=== PATIENT | female | born 1975 | race Caucasian/White ===

== ENCOUNTER 2021-08-08 01:06 | Emergency (ER) | payer SELFPAY ==
[2021-08-08 01:07] VITALS: BP 111/92; PULSE 96; RESP 15; TEMP 36.2; O2SAT 100; BMI 21.8
[2021-08-08] MEDS: 0.9% Normal Saline 1,000 ML 1000 ML IV (01:32)
[2021-08-08 01:36] VITALS: BP 85/73; PULSE 79; RESP 16; O2SAT 97
[2021-08-08 01:41] LABS: Absolute Lymphocyte Count 1.79 X10^3/uL (0.83-4.51); Absolute Neutrophil Count 2.5 X10^3/uL (2.0-7.7); Basophil# 0.01 X10^3/uL; Basophil% 0.2 % (0-1); Hematocrit 34.6 % (37-47); Hemoglobin 11.6 g/dL (12.0-15.0); Lymphocyte # 1.79 X10^3/ul (0.83-4.51); Lymphocyte % 38.2 % (19-41); Mean Corp Hgb Conc 33.5 g/dL (32-36); Mean Corpuscular Hgb 30.7 pg (27.0-32.0); Mean Corpuscular Volume 91.5 fL (81-99); Mean Platelet Vol. 12.7 fl (6.2-12.0); Monocyte% 8.5 % (0-10); NRBC Flagged by Analyzer 0 % (0-5); Neutrophil # 2.47 X10^3/uL (2.7-7.7); Neutrophil % 52.7 % (47-70); Platelet Count 158 K/mm3 (150-450); RBC Distribution Width CV 12.1 % (11.6-14.6); RBC Distribution Width SD 40.5 fl (35.1-43.9); Red Blood Count 3.78 M/mm3 (4.2-5.4); White Blood Count 4.7 K/mm3 (4.4-11.0)
[2021-08-08] MEDS: 0.9% Normal Saline 1,000 ML 999 ML IV (01:42)
[2021-08-08 02:00] LABS: Anion Gap 9 (5-15); BUN 20 mg/dL (7-18); BUN/Creat Ratio 26.2 RATIO (10-20); Calcium,Total 9.4 mg/dL (8.5-10.1); Chloride 108 mmol/L (98-107); Creatinine, Serum 0.76 mg/dL (0.55-1.02); EST Glomerular Filtration Rate 88 mL/min (>60); Est Glom Filt Rate - Afr Amer 106 mL/min (>60); Estimated Creatinine Clearance 85.89 ml/min; Glucose 110 mg/dL (74-106); Potassium 3.2 mmol/L (3.5-5.1); Sodium Level 143 mmol/L (136-145)
[2021-08-08 02:21] LABS: Internal QC Validated? YES +Cl - CLEAR BKGD; Pregnancy, Serum, hCG Quali. NEGATIVE Negative
[2021-08-08 02:31] VITALS: BP 102/58; PULSE 74; RESP 18; O2SAT 99
--- NOTE | 2021-08-08 02:41 | ED.RN ---
CALLED PHYSICIANS 0220 ETA 60 MIN, CALLED 0225 SAID 45 MIN SQUAD EN ROUTE. CALLED TAMI QUIROS/CALLI, OLAMIDE, AND EVERT STEPHENS ALL WITH GREATER THAN [address] CASON STAYED WITH PHYSICIAN'S.
[2021-08-08 02:51] LABS: International Normalized Ratio 1.4; Prothrombin Time (Protime)PT. 16.8 SECONDS (11.7-14.9)
[2021-08-08 02:52] LABS: Lactic Acid 2.7 mmol/L (0.4-1.9)
[2021-08-08 02:52] LABS: Partial Thromboplast Time 29.3 Seconds (24.1-36.2)
--- NOTE | 2021-08-08 02:53 | ED.RN ---
PT ORDERED TO RCVE 2 UNITS OF PRBC'S. PT REFUSED TO RCVE THE TRANSFUSION. DR CASON AWARE
[2021-08-08 03:06] VITALS: BP 97/58; PULSE 71; RESP 15; O2SAT 99
--- NOTE | 2021-08-08 03:29 | ED.VIS.FEGU ---
HPI HPI - Female History of Present Illness Chief Complaint: Vag Bleeding Informant: patient Narrative Narrative: Patient presents with vaginal bleeding after intercourse. This patient was having intercourse and felt a tear sensation. She then had a fair amount of vaginal bleeding. This was bleeding with clots that kept going on so she came in. She does not really have any significant pain. She states she had a tearing sensation but it was not terribly painful. Patient has a history of cervical cancer treated 10 years ago. She had had laparoscopy with lymph node dissection but she did not have hysterectomy. They did do radiation and chemotherapy. She states her uterus is very small and scarred down. She has vaginal scarring. She states normally she can place her finger in her vagina and it is rather shallow. Now when she does that she can feel the end and that is a big difference. She is not really having pain up into her abdomen though. When the patient got here she did get lightheaded diaphoretic and dropped her pressure to the 60s and 80s. Her heart rate also went down to about 47 so some of this may have been a vagal response but she is not having pain that would be causing this so it might be due to blood loss. She is not on any anticoagulation. She is not on any routine meds. Allergy to sulfa only. [facility] Medical History Cervical cancer Home Medications NK 08/08/21 [History Last Taken Unknown] Allergy/AdvReac Type Severity Reaction Status Date / Time Sulfa (Sulfonamide Allergy Rash Verified 08/08/21 01:13 Antibiotics) Social History Smoking Status: Never smoker ROS ROS ED Constitutional Constitutional ED: Denies fever(s) ENT ENT ED: Denies rhinorrhea Cardiovascular Cardiovascular: Denies chest pain or palpitations Respiratory/Chest Respiratory/Chest: Denies cough or dyspnea Gastrointestinal Gastrointestinal: Reports other Details: Mild vaginal discomfort but no abdominal pain. Overall her pain is actually very low. ; Denies abdominal pain, nausea or vomiting Genitourinary Genitourinary ED: Reports other Details: See history of present illness Musculoskeletal Musculoskeletal: Denies myalgias Integumentary Denies rash Neurologic Neurologic: Denies paresthesias Endocrine Endocrinology: Denies polydipsia or polyuria Hematologic/Lymphatic Hematologic/Lymphatic: Denies easy bleeding or easy bruising Allergic/Immunologic Allergic/Immunologic ED: Denies urticaria EXAM Physical Exam Const Vital Signs: 08/08/21 01:07 08/08/21 01:36 08/08/21 02:31 Temperature 97.1 F L Temperature Source Oral Pulse Rate 96 79 74 Respiratory Rate 15 16 18 Blood Pressure 111/92 H 85/73 L 102/58 L Blood Pressure Mean 98 77 72 Pulse Ox 100 97 99 Oxygen Delivery Method Room Air Room Air 08/08/21 03:06 08/08/21 03:45 Temperature 97.9 F Temperature Source Pulse Rate 71 71 Respiratory Rate 15 16 Blood Pressure 97/58 L 97/58 L Blood Pressure Mean 71 71 Pulse Ox 99 99 Oxygen Delivery Method Room Air Positive well nourished and well developed Constitutional Narrative: Patient looks a little bit pale when I first see her but that is when her blood pressure drops. She has mild diaphoresis. General Appearance ED: well developed; Negative for pallor HEENT Reports moist mucous membranes Eyes General Eye ED: Negative for pale conjunctiva Neck supple Chest Wall inspection of chest normal Resp normal respiratory effort Cardio regular rate and regular rhythm GI normal to inspection, nondistended, normoactive bowel sounds, soft to palpation and non-tender GI Narrative: Her abdomen is flat and not tender. no CVA tenderness Narrative: Pelvic exam shows normal external genitalia. There is bright red blood in the vaginal vault. This is not welling up arising but does look to be quite fresh. I was able to remove multiple clots but cannot see a defined tear. Bimanual exam did not show tenderness up higher in the abdomen. There is a slight irregularity of the left vaginal wall but I do not feel perforation. I also do not feel a normal cervix. But she has had radiation at that area. Back/Spine no CVA tenderness Extremity General Extremety ED: Negative for edema or tenderness General Extremity: Negative for edema Neuro oriented x3 Sensorium / Orientation: alert Psych mental status grossly normal Skin Skin Narrative: Transient diaphoresis. General Skin Exam: Negative for pallor MDM MDM MDM Narrative Medical decision making narrative: With her history and exam I talked our [employer] physician, Dr. Alma Oviedo. She felt with this patient's complex history and radiation that doing surgery here would not be the best for her. I then made calls to [facility] and [facility]. [facility] is able to get back and accept her. I discussed case with Dr. Herron in the emergency department and the transfer line had discussed the case with [employer] physician. I talked to the patient about transfusion. She does not want this at this time. However I will do type and crossing in case we have further issues. Happily, after fluids patient stabilized and has remained very stable here. Her heart rate is about 70. She has had blood pressures at about 100-113. Patient was transferred. She is still doing well. Bleeding does seem to have calm down significantly. Vitals have been good. Heart rates about 70. No more hypotensive episodes. Lab Data Labs: Laboratory Results - last 24 hr 08/08/21 08/08/21 08/08/21 01:20 01:20 01:20 WBC 4.7 RBC 3.78 L Hgb 11.6 L Hct 34.6 L MCV 91.5 MCH 30.7 MCHC 33.5 RDW Std Deviation 40.5 RDW Coeff of Patrick 12.1 Plt Count 158 MPV 12.7 H Immature Gran % (Auto) 0.400 Neut % (Auto) 52.7 Lymph % (Auto) 38.2 [place] % (Auto) 8.5 Eos % (Auto) 0.0 Baso % (Auto) 0.2 Absolute Neuts (auto) 2.5 Absolute Lymphs (auto) 1.79 Nucleated RBC % 0 PT INR APTT Sodium 143 Potassium 3.2 L Chloride 108 H Carbon Dioxide 26.0 Anion Gap 9 BUN 20 H Creatinine 0.76 Estim Creat Clear Calc 85.89 Est GFR (MDRD) Af Amer 106 Est GFR (MDRD) Non-Af 88 BUN/Creatinine Ratio 26.2 H Glucose 110 H Lactic Acid Calcium 9.4 Serum , Qual NEGATIVE Blood Type Antibody Screen Crossmatch 08/08/21 08/08/21 08/08/21 01:20 01:20 02:05 WBC RBC Hgb Hct MCV MCH MCHC RDW Std Deviation RDW Coeff of Patrick Plt Count MPV Immature Gran % (Auto) Neut % (Auto) Lymph % (Auto) [place] % (Auto) Eos % (Auto) Baso % (Auto) Absolute Neuts (auto) Absolute Lymphs (auto) Nucleated RBC % PT INR APTT Sodium Potassium Chloride Carbon Dioxide Anion Gap BUN Creatinine Estim Creat Clear Calc Est GFR (MDRD) Af Amer Est GFR (MDRD) Non-Af BUN/Creatinine Ratio Glucose Lactic Acid 2.7 H* Calcium Serum , Qual Blood Type A POSITIVE Antibody Screen NEGATIVE Crossmatch See Detail 08/08/21 02:18 WBC RBC Hgb Hct MCV MCH MCHC RDW Std Deviation RDW Coeff of Patrick Plt Count MPV Immature Gran % (Auto) Neut % (Auto) Lymph % (Auto) [place] % (Auto) Eos % (Auto) Baso % (Auto) Absolute Neuts (auto) Absolute Lymphs (auto) Nucleated RBC % PT 16.8 H INR 1.4 APTT 29.3 Sodium Potassium Chloride Carbon Dioxide Anion Gap BUN Creatinine Estim Creat Clear Calc Est GFR (MDRD) Af Amer Est GFR (MDRD) Non-Af BUN/Creatinine Ratio Glucose Lactic Acid Calcium Serum , Qual Blood Type Antibody Screen Crossmatch Discharge Plan Triage Chief Complaint: Vag Bleeding ED Provider: Mark Tran Dx/Rx/DC Orders Clinical Impression: Vaginal trauma, Acute hypotension Prescriptions: No Action NK RF: 0 Primary Care Provider: Care Physician,No Primary Referrals: Care Physician,No Primary [Primary Care Provider] - Disposition Disposition: Acute Care Hospital Discharge Location: [facility] Discharge Date/Time: 08/08/21 03:46
[2021-08-08 03:45] VITALS: BP 97/58; PULSE 71; RESP 16; TEMP 36.6; O2SAT 99
[2021-08-08 06:10] LABS: Reflex Lactate? Y
== END 2021-08-08 03:46 | disposition short-term general hospital (02) ==
PROVIDERS: Emergency Provider Emergency Medicine; Visit Provider Emergency Medicine
DX: S39.93XA Unspecified injury of pelvis, initial encounter (principal); X58.XXXA Exposure to other specified factors, initial encounter; Z85.41 Personal history of malignant neoplasm of cervix uteri; Z92.3 Personal history of irradiation; I95.9 Hypotension, unspecified
CPT/HCPCS: 80048; 83605; 84703; 85025; 85610; 85730; 86850; 86900; 86901; 86920; 96360; 99285; J7030; A4216

== ENCOUNTER 2022-03-19 11:00 | Emergency (ER) | payer SELFPAY ==
[2022-03-19] VITALS (8 sets, daily range): BP systolic 92–124; BP diastolic 56–96; PULSE 95–131; RESP 16–22; TEMP 37.3–39.2; O2SAT 98–99; BMI 19.4
--- NOTE | 2022-03-19 11:35 | NURSING ---
NO OLD EKGS
--- NOTE | 2022-03-19 12:04 | RAD_ITS ---
We are attempting to reach an attending provider to discuss findings. An addendum with communication details will be sent when the communication is complete. STUDY: X-RAY CHEST REASON FOR EXAM: Female, 46 years old. Cough TECHNIQUE: Single AP portable view of the chest. COMPARISON: None. FINDINGS: There is a right-sided paramediastinal mass in the right apex measuring 5.4 x 4.6 cm. There is a right apical nodule measuring 1.2 cm. There is a slightly irregular appearance of the right fourth rib. There is no demonstrated pleural abnormality. Normal size heart. Normal mediastinum and renetta. Normal visualized pulmonary arteries. Normal visualized aortic arch and descending thoracic aorta. Normal visualized thoracic spine. Normal visualized ribs, clavicles, and shoulders. There is no demonstrated abnormality of the visualized soft tissue structures of the upper abdomen. RAD/Chest 1 View (Portable) IMPRESSION: 5.4 x 4.6 cm mass with adjacent 1.2 cm nodule in the right upper lobe bordering the mediastinum for which further evaluation is warranted with CT scan of the chest. Although inflammatory change could have this appearance neoplasm should be excluded. Electronically Signed: Cathie Rebolledo MD at 13:07 EST Reading Location ID and State: [facility] / [place] Tel , Service support ,
[2022-03-19 12:27] LABS: Mucous, Urine 0 SEEN /hpf (<or=2+)
[2022-03-19 12:28] LABS: Color, Urine Yellow (Yellow); Glucose, Dipstick Normal (Normal); Ketone-Dipstick 15 mg/dl (Negative); Leukocyte Esterase-Dipstick 500 /ul (Negative); Nitrite-Dipstick Positive (Negative); Occult Blood-Urine 250 /ul (Negative); Protein-Dipstick 100 mg/dl (Negative); Specific Gravity, Urine 1.015 (1.002-1.030); Urine Bilirubin Dipstick Negative (Negative); Urine Clarity Sl. Cloudy (Clear); Urine Urobilinogen Normal (Normal)
[2022-03-19 12:36] LABS: Bacteria 3+ /hpf (None Seen); Red Blood Cells-Urine 5-10 SEEN /hpf (0-5); Squamous Epithelial Cells - UA 0-5 SEEN /hpf (5-10); White Blood Cells 10-25 SEEN /hpf (0-5)
[2022-03-19 12:37] LABS: Internal QC Validated? YES +Cl - CLEAR BKGD; Pregnancy, Urine Negative Negative; Yeast-Urine 0 SEEN /hpf (None Seen)
--- NOTE | 2022-03-19 12:39 | EX.ED.DYSGE1 ---
HPI History of Present Illness Chief Complaint: General Illness Informant: patient Narrative Narrative: Presents feeling ill for 4 days. States fever headache lower abdominal cramping. No vomiting or diarrhea. Malodorous urine. Denies sick contacts. Nonvaccinated for COVID or influenza. History of cervical cancer with radiation in the past therefore does not have menstrual periods. States also has myalgias.She states never test positive for COVID in the past had symptoms when it first came out. [facility] Medical History Cervical cancer Home Medications cefdinir 300 mg capsule 300 mg PO BID #14 caps 03/19/22 [Rx Last Taken Unknown] Allergy/AdvReac Type Severity Reaction Status Date / Time Sulfa (Sulfonamide Allergy Rash Verified 03/19/22 11:01 Antibiotics) Social History Smoking Status: Never smoker ROS ROS ED Constitutional Constitutional ED: Reports fever(s); Denies chills or sweats Eyes Eyes: Denies change in vision ENT ENT ED: Denies dysphagia or sore throat Cardiovascular Cardiovascular: Denies chest pain, leg edema, palpitations or racing heartbeat Respiratory/Chest Respiratory/Chest: Reports cough; Denies dyspnea or dyspnea on exertion Gastrointestinal Gastrointestinal: Reports abdominal pain; Denies diarrhea, nausea or vomiting Genitourinary Genitourinary ED: Reports other Details: Malodorous urine. ; Denies dysuria, hematuria or urinary frequency Musculoskeletal Musculoskeletal: Reports myalgias; Denies back pain, extremity pain or neck pain Integumentary Denies rash or wounds Neurologic Neurologic: Denies headache(s), paresthesias or weakness EXAM Physical Exam Const Vital Signs: 03/19/22 11:01 03/19/22 12:30 03/19/22 11:04 Temperature 100.7 F H 100.7 F H Temperature Source Temporal Temporal Pulse Rate 131 H 131 H Respiratory Rate 16 16 Respiratory Effort Normal Non-Labored Respiratory Pattern Normal Blood Pressure 124/96 H 124/96 H Blood Pressure Mean 105 105 Pulse Ox 99 99 Oxygen Delivery Method Room Air Room Air 03/19/22 12:04 03/19/22 13:00 Temperature 100.5 F H 102.6 F H Temperature Source Temporal Oral Pulse Rate 130 H 106 H Respiratory Rate 18 22 H Respiratory Effort Respiratory Pattern Blood Pressure 118/85 H 99/66 Blood Pressure Mean 96 77 Pulse Ox 98 98 Oxygen Delivery Method Room Air Room Air Positive well nourished and well developed Constitutional Narrative: Clinically appears fatigued. Nontoxic. General Appearance ED: well developed HEENT Reports TM's clear HEENT Narrative: Mild dry mucosal membranes. Tympanic Membrane ED: Yes TM's clear Eyes PERRL, EOMs intact bilaterally and conjunctivae normal General Eye ED: Yes normal appearance of both eyes Neck no lymphadenopathy and supple General: Negative for tenderness Chest Wall Chest: Negative for tenderness Resp normal respiratory effort and normal air movement Effort and Inspection: symmetric chest movement; Negative for respiratory distress Cardio regular rhythm and no murmurs Rate: tachycardic Peripheral Pulses: pulses 2+ throughout GI normal to inspection, nondistended, normoactive bowel sounds and non-tender GI Narrative: Negative Trejo's or McBurney's tenderness. Palpation: Negative for guarding or rebound tenderness present Back/Spine no CVA tenderness and no thoracic nor lumbar tenderness Extremity normal to inspection General Extremety ED: Negative for edema or tenderness General Extremity: Negative for edema Neuro oriented x3, CN's II-XII intact bilaterally and no sensory deficits noted Sensorium / Orientation: awake and alert Skin no rashes or lesions noted and no wounds MDM MDM MDM Narrative Medical decision making narrative: Patient present influenza-like symptoms. She is tachycardic low-grade fever. Slight dry mucosal membranes. She given IV fluids. She had urine symptoms. Labs White count 17.3. Creatinine is normal. COVID and flu negative. Two-view chest x-ray reviewed by myself and the discussion with radiology concerning for right upper lung mass. Urine positive for infection. She was tachycardic febrile therefore lactic acid and blood cultures drawn. Lactic acid returned normal. CT chest with contrast obtained due to concerning mass, results noted 5.6 cm in diameter right apical mass. Also reported concerning for healing remote rib fractures 3 on the right 1 in the left. She denies trauma however states 2 months ago significant coughing at that time with pain that lasted a while. She had increasing fever in the ED of 102.6. History of Toradol and Tylenol. Heart rate improved with fluids. She is nontoxic. She states over a year ago when she moved in with her significant other lost 20 pounds that was intentional. No unintentional weight loss. History of cervical cancer 10 years ago with treatment. She stopped smoking at that time. She is not hypoxic or in respiratory distress. She started on Rocephin for her UTI findings with cultures pending. I discussed with telemarketing fundraiser Dr. Arevalo with her lung mass findings, she will call the office on Monday to be seen for outpatient work-up of the mass. Prescription for Omnicef sent to her pharmacy. Return precautions discussed. All questions were answered. Lab Data Attestation: I reviewed the patient's lab results. Labs: Laboratory Results - last 24 hr 03/19/22 03/19/22 03/19/22 12:20 12:20 12:40 WBC 17.3 H RBC 4.87 Hgb 14.3 Hct 43.4 MCV 89.1 MCH 29.4 MCHC 32.9 RDW Std Deviation 43.6 RDW Coeff of Patrick 13.2 Plt Count 147 L MPV 11.8 Immature Gran % (Auto) 0.800 Neut % (Auto) 78.3 H Lymph % (Auto) 3.2 L [place] % (Auto) 17.4 H Eos % (Auto) 0.0 Baso % (Auto) 0.3 Absolute Neuts (auto) 13.6 H Absolute Lymphs (auto) 0.56 L Nucleated RBC % 0 Diff Path Review May foll Platelet Estimate ADEQUATE RBC Morphology NORM C+C Sodium Potassium Chloride Carbon Dioxide Anion Gap BUN Creatinine Estim Creat Clear Calc Est GFR (MDRD) Af Amer Est GFR (MDRD) Non-Af BUN/Creatinine Ratio Glucose Lactic Acid Calcium Urine Color Yellow Urine Clarity Sl. Cloudy Urine pH 6.0 Ur Specific [place] 1.015 Urine Protein 100 H Urine Glucose (UA) Normal Urine Ketones 15 H Urine Occult Blood 250 H Urine Nitrite Positive H Urine Bilirubin Negative Urine Urobilinogen Normal Ur Leukocyte Esterase 500 H Urine RBC 5-10 SEEN Urine WBC 10-25 SEEN Ur Squamous Epith Cells 0-5 SEEN Urine Bacteria 3+ Urine Mucus 0 SEEN Urine Yeast 0 SEEN Urine Test Negative Chlam trachomat DNA PCR N.gonorrhoeae DNA (PCR) 03/19/22 03/19/22 03/19/22 12:40 12:55 14:45 WBC RBC Hgb Hct MCV MCH MCHC RDW Std Deviation RDW Coeff of Patrick Plt Count MPV Immature Gran % (Auto) Neut % (Auto) Lymph % (Auto) [place] % (Auto) Eos % (Auto) Baso % (Auto) Absolute Neuts (auto) Absolute Lymphs (auto) Nucleated RBC % Diff Path Review Platelet Estimate RBC Morphology Sodium 134 L Potassium 3.6 Chloride 99 Carbon Dioxide 27.0 Anion Gap 8 BUN 17 Creatinine 0.93 Estim Creat Clear Calc 64.67 Est GFR (MDRD) Af Amer 84 Est GFR (MDRD) Non-Af 69 BUN/Creatinine Ratio 18.2 Glucose 109 H Lactic Acid 0.9 Calcium 9.2 Urine Color Urine Clarity Urine pH Ur Specific [place] Urine Protein Urine Glucose (UA) Urine Ketones Urine Occult Blood Urine Nitrite Urine Bilirubin Urine Urobilinogen Ur Leukocyte Esterase Urine RBC Urine WBC Ur Squamous Epith Cells Urine Bacteria Urine Mucus Urine Yeast Urine Test Chlam trachomat DNA PCR Negative N.gonorrhoeae DNA (PCR) Negative Radiography Diagnostic Testing: Clinical Impression(s) from Imaging Studies Chest X-Ray 03/19/22 12:04 IMPRESSION: 5.4 x 4.6 cm mass with adjacent 1.2 cm nodule in the right upper lobe bordering the mediastinum for which further evaluation is warranted with CT scan of the chest. Although inflammatory change could have this appearance neoplasm should be excluded. Electronically Signed: Cathie Rebolledo MD at 13:07 EST , ADDENDUM: 03/19/22 1318 IMPRESSION: 5.4 x 4.6 cm mass with adjacent 1.2 cm nodule in the right upper lobe bordering the mediastinum for which further evaluation is warranted with CT scan of the chest. Although inflammatory change could have this appearance neoplasm should be excluded. N.B. : The above Results were Read Back by Cathie Rebolledo MD to Ezra Leslie MD, and understanding confirmed on 03/19/2022 13:11:18 (ET). Electronically Signed: Cathie Rebolledo MD at 13:07 EST , Chest CT 03/19/22 13:12 IMPRESSION: Large lobulated solid appearing mass within the right apex highly suspicious for by 5.6 x 4.7 x 5.4 cm large primary lung cancer with an adjacent satellite nodule and questionable rib changes. There is an indeterminate focus of sclerotic density within the right fourth rib and nonacute appearing bilateral rib fractures. Recommend further evaluation with PET scan and planning and/or consideration for bronchoscopy. There is a 6 mm indeterminate cystic structure within the liver too small to characterize. There is mild bilateral pelviectasis partially seen on this study. Electronically Signed: Cathie Rebolledo MD at 13:55 EST , Discharge Plan Triage Chief Complaint: General Illness ED Provider: Ezra Leslie Dx/Rx/DC Orders Clinical Impression: Mass of right lung, UTI (urinary tract infection), Viral illness, Fever Instructions: UTIs Understanding, ED Fever Control (Adult), ED Viral Syndrome (Adult) Prescriptions: New cefdinir 300 mg capsule 300 mg PO BID Qty: 14 0RF Primary Care Provider: Care Physician,No Primary Referrals: Carlos Eduardo Arevalo DO [Med Staff - Active Staff] - 2 Days Care Physician,No Primary [Primary Care Provider] - Activity Restrictions/Additional Instructions: Right lung mass new findings. Discussed with Dr. Arevalo in ED. Call office on Monday at the number noted to be seen. Urine with UTI findings take antibiotic as prescribed. Fever in the ED. COVID and influenza negative. Blood cultures are in the lab. Follow-up as an outpatient return if any worsening symptoms. Disposition Disposition: Home, Self Care
[2022-03-19] MEDS: 0.9% Normal Saline 1,000 ML 1000 ML IV ×2 (12:44→14:44)
[2022-03-19] MEDS: Ketorolac 15 MG/ML Vial IV (12:44)
[2022-03-19 12:53] LABS: Absolute Lymphocyte Count 0.56 X10^3/uL (0.83-4.51); Absolute Neutrophil Count 13.6 X10^3/uL (2.0-7.7); Basophil# 0.05 X10^3/uL; Basophil% 0.3 % (0-1); Hematocrit 43.4 % (37-47); Hemoglobin 14.3 g/dL (12.0-15.0); Lymphocyte # 0.56 X10^3/ul (0.83-4.51); Lymphocyte % 3.2 % (19-41); Mean Corp Hgb Conc 32.9 g/dL (32-36); Mean Corpuscular Hgb 29.4 pg (27.0-32.0); Mean Corpuscular Volume 89.1 fL (81-99); Mean Platelet Vol. 11.8 fl (6.2-12.0); Monocyte# 3.02 X10^3/uL; Monocyte% 17.4 % (0-10); NRBC Flagged by Analyzer 0 % (0-5); Neutrophil # 13.56 X10^3/uL (2.7-7.7); Neutrophil % 78.3 % (47-70); POSITIVE DIFFERENTIAL YES; Platelet Count 147 K/mm3 (150-450); RBC Distribution Width CV 13.2 % (11.6-14.6); RBC Distribution Width SD 43.6 fl (35.1-43.9); Red Blood Count 4.87 M/mm3 (4.2-5.4); White Blood Count 17.3 K/mm3 (4.4-11.0)
[2022-03-19 12:59] LABS: Differential Indicated SCAN CRITERIA MET
[2022-03-19 13:06] LABS: Anion Gap 8 (5-15); BUN 17 mg/dL (7-18); BUN/Creat Ratio 18.2 RATIO (10-20); Calcium,Total 9.2 mg/dL (8.5-10.1); Chloride 99 mmol/L (98-107); Creatinine, Serum 0.93 mg/dL (0.55-1.02); EST Glomerular Filtration Rate 69 mL/min (>60); Est Glom Filt Rate - Afr Amer 84 mL/min (>60); Estimated Creatinine Clearance 64.67 ml/min; Glucose 109 mg/dL (74-106); Potassium 3.6 mmol/L (3.5-5.1); Sodium Level 134 mmol/L (136-145)
--- NOTE | 2022-03-19 13:12 | CT_ITS ---
INDICATION: RUL mass Patient with history of cough. EXAMINATION: CT CHEST WITH CONTRAST - CT Chest W/ Contrast Injection TECHNIQUE: Helically acquired images were obtained of the chest following IV contrast. A radiation dose optimization technique was used for this scan. IV Contrast dosage and agent: COMPARISON: Chest x-ray March 19, 2022 FINDINGS: LUNGS, PLEURA AND LARGE AIRWAYS: There is a 5.6 x 4.7 x 5.4 cm lobulated partially enhancing right upper lobe mass abutting the upper aspect of the mediastinum the visualized band of pleural thickening in the right apex. There is a associated right apical nodule measuring 7.5 mm. Is a minimal amount adjacent laboratory change. No pneumothorax. THYROID: No thyroid lesions. HEART AND PERICARDIUM: Heart size is normal. No pericardial effusion. VESSELS: Thoracic aorta is not dilated. No aortic dissection. No obvious central pulmonary embolism although this study was not performed with the pulmonary embolism protocol. MEDIASTINUM AND GORDON: There is amenable nonspecific 5 mm right hilar lymph node. Esophagus is unremarkable. There is a minimal hiatal hernia. UPPER ABDOMEN: The liver is mildly enlarged. Liver appears fatty infiltrated. Within the inferior aspect of the right hepatic lobe there is a nonspecific 6 mm cystic structure. This partially visualized bilateral pelviectasis. There is minimal thickening of the inferior aspect of the adrenal glands. BONES: Within the right fourth rib there is a small focus of sclerotic density which is indeterminant but in this setting raises concern for possible bony reaction. In addition there is a age indeterminate nonacute fractures of the right lower ribs at the level of 8, 9 and 10. There is visualized degenerative change within the thoracolumbar spine. There is a nondisplaced nonacute appearing fracture at the level of left rib 8. CT/Chest WITH Contrast IMPRESSION: Large lobulated solid appearing mass within the right apex highly suspicious for by 5.6 x 4.7 x 5.4 cm large primary lung cancer with an adjacent satellite nodule and questionable rib changes. There is an indeterminate focus of sclerotic density within the right fourth rib and nonacute appearing bilateral rib fractures. Recommend further evaluation with PET scan and planning and/or consideration for bronchoscopy. There is a 6 mm indeterminate cystic structure within the liver too small to characterize. There is mild bilateral pelviectasis partially seen on this study. Electronically Signed: Cathie Rebolledo MD at 13:55 EST ,
[2022-03-19 14:16] LABS: Platelet Estimate ADEQUATE (ADEQ)
[2022-03-19 14:17] LABS: Red Cell Morphology NORM C+C NORMAL (NORM C&C)
[2022-03-19] MEDS: Acetaminophen 500 MG Tablet 1000 MG PO (14:44)
[2022-03-19 14:55] LABS: Chlamydia Trachomatis by PCR Negative (Negative); Neisserai gonorrhoeae by PCR Negative (Negative); Probe Check PASS; Sample Adequacy Control PASS; Specimen Processing Control PASS
[2022-03-19] MEDS: Ceftriaxone 1 GM/50 ML BAG IV (15:02)
[2022-03-19 15:36] LABS: Lactic Acid 0.9 mmol/L (0.4-1.9)
[2022-03-22 14:00] LABS: Pathologist Review Reviewed
== END 2022-03-19 17:13 | disposition home or self-care (01) ==
PROVIDERS: Emergency Provider Emergency Medicine; Visit Provider Emergency Medicine
DX: R91.8 Other nonspecific abnormal finding of lung field (principal); N39.0 Urinary tract infection, site not specified; B34.9 Viral infection, unspecified; R50.9 Fever, unspecified; Z87.891 Personal history of nicotine dependence
CPT/HCPCS: 71045; 71260; 80048; 81001; 81025; 83605; 85025; 87040; 87077; 87086; 87088; 87186; 87428; 87491; 87591; 93005; 96365; 96366; 96375; 99285; J7030; Q9967; A4216

== ENCOUNTER → 2022-04-04 | Outpatient (CLI) | payer SELFPAY ==
[2022-04-04] VITALS (13 sets, daily range): BP systolic 60–128; BP diastolic 37–108; PULSE 51–83; RESP 14–26; TEMP 36.6; O2SAT 29–100; BMI 19.4
--- NOTE | 2022-04-04 | IMM_PTH ---
PATIENT: DONOVAN MASON LOC: CT U#:[id number] AGE/SX: 46/F ROOM: RE04/04/[address]: Dr. Carlos Eduardo Arevalo DO : 1975 BED: DIS: 04/04/2022 SPEC #: [id number] RECD: 04/04/22 14:42 STATUS: SOUEllen REQ #: [id number] HANNA: 04/04/22 00:[address]: Carlos Eduardo Arevalo DEPT: IMMUNOHISTOCHEMISTRY RECD BY: Geeta Garcia ENTERED: 04/04/22 14:45 SP TYPE: IMMUNO OTHR DR: No Primary Care Phys Tissues: Right upper lobe of lung, NOS Procedures: RCC (add) NAPSIN A (add) CK20 (add) CK5-6 (add) CK7 (add) CK8 (add) HEP PAR (add) WY (add) TTF1 (add) Pankeratin (add) P40 (add) ER (initial) PHYSICIAN & INSTITUTION [address] [address] SPECIMEN INFORMATION: Tissue Source: RUL lung mass, CT-guided core biopsy Clinical Info: RUL lung mass Specimen Number: [id number] CPT code: 53495, 47410 x11 METHODOLOGY: Deparaffinized sections of prefer/formalin-fixed tissue or PAP/DQ stained slides are incubated with monoclonal/polyclonal antibodies/oligonucleotide probes. Localization is made via biotin free immunoperoxidase method. Appropriate controls are performed and reacted as expected. Results on target cell population are indicated in the following table: RESULTS: ANTIBODY / CLONE RESULT ER (6F11) negative WY (1E2) negative AE1-3 (AE1/AE3/PCK26) positive CK7 (OV-TL12/30) positive CK8 (35pulfA02) positive CK20 (KS20.8) negative TTF-1 (8G7G3/1) negative Napsin A (Rabbit Polyclonal) negative HepPar (OCh1E5) negative RCC (PN-15) negative CK5-6 (D5 & 1684) negative P40 (BC28) negative These tests were developed and their performance characteristics determined by [facility]. They may not have been cleared or approved by the U.S. Food and Drug Administration. The FDA has determined that such clearance or approval is not necessary. The above immunohistochemical/dualISH markers are ordered and reviewed by the Pathologist. INTERPRETATION: Right upper lobe lung mass, CT-guided core biopsy: Non-small cell carcinoma, favor adenocarcinoma. See comment. SJ:wanda 04/06/2022 Comment: IHC profile is noncontributory for primary site of origin. Clinical correlation is necessary.
--- NOTE | 2022-04-04 07:52 | CT_ITS ---
PROCEDURE: CT GUIDED CORE NEEDLE BIOPSY OF A right apical LUNG LESION INDICATION: Female, 46 years old. RUL Lung Mass PHYSICIAN: Dr. BRANDON Ritchie CONSENT: Written informed consent was obtained having explained the risks, benefits and alternatives in detail with the patient who accepted the risks and agreed to proceed. Laboratory review and clinical assessment was performed. CONSCIOUS SEDATION PROTOCOL: The Drugs used were: 2 mg Versed, IV., and 50 mcg Fentanyl, IV. The sedation time was: 35 minutes. Conscious sedation was started at 9:10 AM and terminated at 9:45 AM. The conscious sedation protocol was independently monitored. RADIATION DOSAGE (If Supplied By Facility): CTDIvol = ( 12 ) mGy, DLP = ( 112.52 ) mGycm Individualized dose optimization techniques were used for this CT. TECHNIQUE: The patient was placed in the prone position. A noncontrast CT was performed to localize the lesion in the right lung apex . The skin surface was prepped and draped in a sterile fashion. 1% lidocaine was used for local anesthesia. Using CT guidance, a 20-gauge coaxial biopsy device was advanced to the periphery of the lesion. A total of 5 core specimens were obtained. The specimens were placed in a formalin solution. A post procedure CT demonstrated no adverse sequelae or pneumothorax. The patient tolerated the procedure well without adverse event. A negative biopsy does not exclude malignancy. Further imaging or clinical followup based on patient condition and degree of clinical suspicion for malignancy. Suggest rebiopsy, if biopsy results do not match with clinical scenario. CT/Biopsy/Inj or Needle Placement IMPRESSION: 1. CT directed core needle biopsy of the apical right pulmonary mass using CT image guidance with image documentation as described. Pathology results are pending. 2. Conscious Sedation protocol utilized with independent monitoring. Electronically Signed: Lebron Fox MD at 10:14 EST ,
[2022-04-04] MEDS: 0.9% Saline Lock 10 ML Syringe IV (08:00)
[2022-04-04 08:11] LABS: Platelet Count 409 K/mm3 (150-450)
[2022-04-04 08:24] LABS: International Normalized Ratio 1.2; Prothrombin Time (Protime)PT. 14.8 SECONDS (11.7-14.9)
[2022-04-04] MEDS: fentaNYL 100 MCG/2 ML Ampul IV ×2 (09:09→09:19)
[2022-04-04] MEDS: Midazolam 2 MG/2 ML Syringe IV ×2 (09:10→09:19)
--- NOTE | 2022-04-04 09:30 | ASPIGT_PTH ---
PATIENT: DONOVAN MASON LOC: CT U#:[id number] AGE/SX: 46/F ROOM: RE04/04/[address]: Dr. Carlos Eduardo Arevalo DO : 1975 BED: DIS: 04/04/2022 SPEC #: [id number] RECD: 04/04/22 10:38 STATUS: TEENA RELeah #: [id number] HANNA: 04/04/22 09:[address]: Carlos Eduardo Arevalo DEPT: SURGICAL PATHOLOGY RECD BY: Rachael العراقي ENTERED: 04/04/22 10:39 SP TYPE: ASP RAD OTHR DR: No Primary Care Phys Tissues: Lung, NOS Procedures: FNA Specimen Adequacy Special Stain Group II Surgery Specimen Level IV Imprint (control) HEADER OPERATION: CT-guided right upper lobe of lung biopsy PRE-OP DIAGNOSIS: Right upper lobe of lung mass TISSUE SUBMITTED: Right upper lobe of lung mass 20-gauge x5 cores MICROSCOPIC DIAGNOSIS Right upper lobe lung mass, CT-guided core biopsy: Non-small cell carcinoma, favor adenocarcinoma. See comment. RA:wanda 04/05/2022 COMMENT The specimen is evaluated at the time of biopsy by Dr. Cherry. Immediate Evaluation = Malignant cells present derived from non-small cell carcinoma. Immunohistochemistry ([id number]) supports the above diagnosis. IHC profile is noncontributory for primary site of origin. Molecular studies on the tumor can be performed if clinically indicated. Please notify the laboratory if they are needed. Correlation with clinical, radiologic findings and appropriate follow-up are necessary. Case has been reviewed in consultation with Dr. Antonio who concurs with the above diagnosis. IDC:AM MICROSCOPIC DESCRIPTION Slides are reviewed. GROSS DESCRIPTION Received in fixative is one container labeled with the patient's name and designated right upper lobe lung biopsy. The specimen consists of multiple irregular fragments of urban soft tissue that in aggregate measure 1 x 0.1 x <0.1 cm. The specimen is totally submitted in one cassette. Three touch imprints are prepared at the time of core biopsy. / RA:wanda 04/04/2022 TC:0 CPT: 00194, 98312 ADDENDUM ADDENDUM ADDENDUM ADDENDUM ADDENDUM ADDENDUM ADDENDUM ADDENDUM ADDENDUM ADDENDUM 05/03/2022 14:26 ADDENDUM 05/03/2022 14:26 ADDENDUM 05/03/2022 14:26 ADDENDUM 05/03/2022 14:26 ADDENDUM 05/03/2022 14:26 This addendum is added to incorporate an outside pathology consultation report. The case was examined at [facility] (#[id number]) and the following diagnosis was rendered. Right upper lobe lung mass, CT-guided core biopsy: Adenocarcinoma. Please see complete above mentioned consultation report in EMR
[2022-04-04] MEDS: Lidocaine 1% (20 ml mdv) 20 ML Vial INFILT (09:35)
--- NOTE | 2022-04-04 09:55 | RAD_ITS ---
STUDY: X-RAY CHEST REASON FOR EXAM: Female, 46 years old. Pneumothorax -- Immediately post lung biopsy TECHNIQUE: AP inspiration and expiration views COMPARISON: Comparison is made with prior study dated 03/19/2022. FINDINGS: No evidence of pneumothorax on the immediate post right lung biopsy radiographs. The lungs are clear and expanded. There is no demonstrated pleural abnormality. Normal size heart. Normal mediastinum and renetta. Normal visualized pulmonary arteries. Normal visualized aortic arch and descending thoracic aorta. Normal visualized thoracic spine. Normal visualized ribs, clavicles, and shoulders. There is no demonstrated abnormality of the visualized soft tissue structures of the upper abdomen. RAD/Chest Insp/Exp 2 View IMPRESSION: No evidence of pneumothorax on the immediate chest radiographs following right lung biopsy. Electronically Signed: Lebron Fox MD at 10:12 [facility] ,
--- NOTE | 2022-04-04 11:55 | RAD_ITS ---
STUDY: X-RAY CHEST REASON FOR EXAM: Female, 46 years old. Pneumothorax -- 2 hours post lung biopsy TECHNIQUE: AP inspiration and expiration views. COMPARISON: Comparison is made with prior study done earlier today. FINDINGS: No evidence of pneumothorax on the delayed postright apical lung biopsy. RAD/Chest Insp/Exp 2 View IMPRESSION: No evidence of pneumothorax on the delayed postright apical lung biopsy. Electronically Signed: Lebron Fox MD at 12:33 EST ,
== END | disposition home or self-care (01) ==
PROVIDERS: Referring Provider Internal Medicine Critical Care Medicine; Visit Provider Internal Medicine Critical Care Medicine
DX: R91.8 Other nonspecific abnormal finding of lung field (principal)
CPT/HCPCS: 32408; 36415; 71046; 77012; 85049; 85610; 88172; 88305; 88313; 88341; 88342; 99156; 99157; J7050; C2613

== ENCOUNTER → 2022-04-11 | Outpatient (CLI) | payer SELFPAY ==
--- NOTE | 2022-04-11 13:58 | MRI_ITS ---
INDICATION: New diagnosed non small cell, NO HEAD COMPLAINTS EXAMINATION: MRI - MR Brain WO/W Contrast TECHNIQUE: Multiplanar and multisequence MR images of the brain were obtained without and with gadolinium. IV Contrast Dosage and Agent: None. COMPARISON: None. FINDINGS: BRAIN PARENCHYMA: No MRI evidence of hemorrhage. No evidence of acute infarct. There are inhomogeneously enhancing masses in the left temporal lobe measuring approximately 1.4 x 1.4 cm, left parietal lobe measuring 7.3 x 6.7 mm left cerebellar hemisphere measuring 1.9 x 1.6 cm without appreciable cerebral edema or mass effect. Etiology is indeterminate but may be consistent with metastatic disease. Clinical correlation is recommended There is preservation of the de los santos/white matter interface. Normal sella turcica, pituitary gland, infundibular stalk, optic chiasm and hypothalamus. Posterior fossa structures are unremarkable. INTERNAL AUDITORY CANALS: The internal auditory canals are well visualized and patent. No mass identified. CSF SPACES: Appropriate for age. No hydrocephalus. Basal cisterns are patent. VASCULAR SYSTEM: Normal flow voids in the major intracranial circulation. CALVARIUM, SKULL BASE, PARANASAL SINUSES AND MASTOID AIR CELLS: Clear. No expansile changes. ORBITS: Both globes, extraocular muscles, optic nerves and retrobulbar fat appear unremarkable. MRI/Brain W/WO Contrast IMPRESSION: Heterogeneously enhancing masses in the left temporal, and parietal lobe as well as left cerebellar hemisphere which may be consistent with metastatic disease. Subacute infarcts may create similar appearance. Clinical correlation is recommended Electronically Signed: Domingo Jules MD at 15:59 EST ,
== END | disposition home or self-care (01) ==
PROVIDERS: Referring Provider Internal Medicine Critical Care Medicine; Visit Provider Internal Medicine Critical Care Medicine
DX: C80.1 Malignant (primary) neoplasm, unspecified (principal)
CPT/HCPCS: 70553; A9575

== ENCOUNTER → 2022-04-13 | Outpatient (CLI) | payer SELFPAY ==
--- NOTE | 2022-04-13 10:30 | PET_ITS ---
EXAMINATION: FDG PET-CT INDICATIONS: A 46-year-old female with history of apparent primary lung carcinoma presenting for initial staging examination. COMPARISON EXAMINATION: MRI of the brain report dated 04/11/22, CT of the chest report dated 03/19/22 INDEX LESION SIZE SUV INTERPRETATION Right upper lung, right upper lobe mass density 5.5-cm 16.3 Fulfills quantitative criteria for viable neoplasm Right upper lung, right upper lobe 12.4-mm 3.5 Fulfills quantitative criteria for viable neoplasm Right thoracic perihilum 7.9-mm 4.2 Fulfills quantitative criteria for viable neoplasm TECHNIQUE: Following the intravenous administration of 12.24 mCi of F-18 deoxyglucose via the left hand, multiplanar image acquisitions of the neck, chest, abdomen and pelvis to level of mid thigh, obtained at one hour post radiopharmaceutical administration contemporaneously interpreted with the current CT of the neck, chest, abdomen and pelvis, to level of mid thigh, dated 04/13/22 via coregistration and MRI of the brain report dated 04/11/22, CT of the chest report dated 03/19/22 reveals: BLOOD GLUCOSE LEVEL:?? 98 mg/dl?HEIGHT:?65 inches?WEIGHT: 119 lbs. FINDINGS: Head/Neck: There is no evidence of abnormal increased glucose metabolism in the pharyngeal mucosal space, parapharyngeal space, bilateral-lateral and anterior neck, hypopharynx and distribution of the laryngeal structures. The visualized portion of the cerebral cortical-subcortical structures demonstrate symmetric and preserved glucose metabolism. CHEST: An increase in FDG concentration is manifest in the right upper lung field, right upper lobe. The calculated maximal standard uptake value is 16.3. The maximal axial diameter of the metabolic, morphologic abnormality is 5.5 cm (AP). Additionally, there is increased tracer uptake noted in the right upper lung field, apical right upper lobe. The calculated maximal standard uptake value is 3.5. The maximal axial diameter of the corresponding soft tissue density is 12.4-mm. Facilitated FDG uptake is noted in the right thoracic perihilum with a calculated maximal standard uptake value of 4.2. The maximal axial diameter of the metabolic, morphologic abnormality is 7.9-mm. Pertinent chest CT findings are as follows. No additional parenchymal densities-nodules are defined in the bilateral hemithorax. Bilateral axillary soft tissue densities reveal no evidence of increased tracer uptake. Abdomen/Pelvis: Normal physiologic distribution of the radiopharmaceutical is apparent in the hepatic (3.0) and splenic parenchyma, both renal units, bladder and visualized intestinal tract. Pertinent abdomen and pelvis CT findings are as follows. Pelvic arterial calcification is observed. Right and left inguinal soft tissue densities are non-glucose avid. Apparent post-procedural change is noted in the lower pelvis. Skeletal: Degenerative changes are noted in the cervical, thoracic and lumbar spine without evidence of increased radiopharmaceutical concentration. There are no well-defined sclerotic-lytic changes manifest on review of the appendicular-axial skeletal structures. PET/PET/CT Tumor Base -Thigh Init IMPRESSION: 1. ABNORMAL EXAMINATION INDICATIVE OF MALIGNANT VIABLE NEOPLASM involving the right upper lung field in two separate locations corresponding to mass formation and parenchymal density-nodule. (Petra et al, Annals of Internal Medicine, 138:724, 2003). 2. Enhanced tracer uptake noted in the right thoracic perihilum fulfills quantitative criteria for viable neoplasm. Electronic Signature Wilfrid Tolentino D.O. Accurate Quantification of SUVs for this report are calculated using the exclusive [employer] Technology. (U.S. Patent No. [phone] B2 [phone] [place] patent [phone]). Standardization and correction of the FDG SUV metric via [employer] technology allow for vendor non-specific objective quantitative examination comparison and optimization of the sensitivity and specificity of the FDG PET-CT examination. Electronically Signed: Wilfrid Tolentino, at 18:29 EST ,
== END | disposition home or self-care (01) ==
PROVIDERS: Referring Provider Internal Medicine Critical Care Medicine; Visit Provider Internal Medicine Critical Care Medicine
DX: M47.816 Spondylosis without myelopathy or radiculopathy, lumbar region (principal); C80.1 Malignant (primary) neoplasm, unspecified; R91.8 Other nonspecific abnormal finding of lung field; M47.814 Spondylosis without myelopathy or radiculopathy, thoracic region; M47.812 Spondylosis without myelopathy or radiculopathy, cervical region
CPT/HCPCS: 78815; A9552

== ENCOUNTER → 2022-06-20 | Outpatient (CLI) | payer MEDICAID, SELFPAY ==
[2022-06-20 10:15] LABS: Absolute Neutrophil Count 1.1 X10^3/uL (2.0-7.7); Basophil# 0.01 X10^3/uL; Basophil% 0.2 % (0-1); Eosinophil# 0.01 X10^3/uL; Eosinophils% 0.2 % (0-5); Hematocrit 39.6 % (37-47); Hemoglobin 12.9 g/dL (12.0-15.0); Lymphocyte % 34.9 % (19-41); Mean Corp Hgb Conc 32.6 g/dL (32-36); Mean Corpuscular Hgb 30.3 pg (27.0-32.0); Mean Platelet Vol. 10.7 fl (6.2-12.0); Monocyte# 1.48 X10^3/uL; Monocyte% 36.9 % (0-10); NRBC Flagged by Analyzer 0 % (0-5); Neutrophil # 1.08 X10^3/uL (2.7-7.7); Neutrophil % 27.1 % (47-70); Platelet Count 193 K/mm3 (150-450); RBC Distribution Width CV 12.9 % (11.6-14.6); RBC Distribution Width SD 43.8 fl (35.1-43.9); Red Blood Count 4.26 M/mm3 (4.2-5.4)
[2022-06-20 11:03] LABS: ALB/GLOB Ratio 0.9 RATIO (0.9-2.4); AST(SGOT) 26 U/L (15-37); Alanine Aminotransfer ALT/SGPT 36 U/L (13-56); Albumin, Serum 3.7 g/dL (3.2-5.0); Alkaline Phosphatase 80 U/L (45-117); Anion Gap 3 (5-15); BUN 11 mg/dL (7-18); BUN/Creat Ratio 14.5 RATIO (10-20); Bilirubin, Direct 0.09 mg/dL (0.00-0.30); Calcium,Total 9.2 mg/dL (8.5-10.1); Chloride 106 mmol/L (98-107); Creatinine, Serum 0.76 mg/dL (0.55-1.02); EST Glomerular Filtration Rate 88 mL/min (>60); Est Glom Filt Rate - Afr Amer 106 mL/min (>60); Glucose 98 mg/dL (74-106); Protein, Total 7.7 g/dL (6.4-8.2); Sodium Level 137 mmol/L (136-145)
== END | disposition home or self-care (01) ==
LOC: MTLAB 07:23
DX: C53.9 Malignant neoplasm of cervix uteri, unspecified (principal)
CPT/HCPCS: 36415; 80053; 82248; 84443; 85025

== ENCOUNTER → 2022-06-24 | Outpatient (CLI) | payer MEDICAID, SELFPAY ==
[2022-06-24 09:53] LABS: Absolute Lymphocyte Count 1.69 X10^3/uL (0.83-4.51); Absolute Neutrophil Count 2.4 X10^3/uL (2.0-7.7); Basophil# 0.02 X10^3/uL; Basophil% 0.4 % (0-1); Eosinophil# 0.01 X10^3/uL; Eosinophils% 0.2 % (0-5); Hematocrit 40.1 % (37-47); Hemoglobin 13.1 g/dL (12.0-15.0); Lymphocyte # 1.69 X10^3/ul (0.83-4.51); Lymphocyte % 31.1 % (19-41); Mean Corp Hgb Conc 32.7 g/dL (32-36); Mean Corpuscular Hgb 30.1 pg (27.0-32.0); Mean Corpuscular Volume 92.2 fL (81-99); Mean Platelet Vol. 10.9 fl (6.2-12.0); Monocyte# 1.25 X10^3/uL; NRBC Flagged by Analyzer 0 % (0-5); Neutrophil # 2.44 X10^3/uL (2.7-7.7); Neutrophil % 44.9 % (47-70); Platelet Count 176 K/mm3 (150-450); RBC Distribution Width CV 12.8 % (11.6-14.6); Red Blood Count 4.35 M/mm3 (4.2-5.4); White Blood Count 5.4 K/mm3 (4.4-11.0)
[2022-06-24 10:11] LABS: AST(SGOT) 20 U/L (15-37); Alanine Aminotransfer ALT/SGPT 32 U/L (13-56); Albumin, Serum 3.7 g/dL (3.2-5.0); Alkaline Phosphatase 83 U/L (45-117); Anion Gap 4 (5-15); BUN 12 mg/dL (7-18); BUN/Creat Ratio 16.3 RATIO (10-20); Bilirubin, Direct 0.11 mg/dL (0.00-0.30); Calcium,Total 9.3 mg/dL (8.5-10.1); Chloride 104 mmol/L (98-107); Creatinine, Serum 0.73 mg/dL (0.55-1.02); EST Glomerular Filtration Rate 91 mL/min (>60); Est Glom Filt Rate - Afr Amer 110 mL/min (>60); Glucose 103 mg/dL (74-106); Potassium 4.1 mmol/L (3.5-5.1); Protein, Total 7.7 g/dL (6.4-8.2); Sodium Level 138 mmol/L (136-145); Thyroid Stim Hormone (TSH) 1.65 uIU/mL (0.358-3.74)
== END | disposition home or self-care (01) ==
LOC: MTLAB 08:20
DX: C53.8 Malignant neoplasm of overlapping sites of cervix uteri (principal)
CPT/HCPCS: 36415; 80048; 80076; 84443; 85025

== ENCOUNTER → 2022-07-18 | Outpatient (CLI) | payer MEDICAID, SELFPAY ==
[2022-07-18 09:58] LABS: Absolute Lymphocyte Count 1.74 X10^3/uL (0.83-4.51); Absolute Neutrophil Count 5.4 X10^3/uL (2.0-7.7); Basophil# 0.02 X10^3/uL; Basophil% 0.2 % (0-1); Eosinophil# 0.02 X10^3/uL; Eosinophils% 0.2 % (0-5); Hematocrit 34.2 % (37-47); Hemoglobin 11.1 g/dL (12.0-15.0); Lymphocyte # 1.74 X10^3/ul (0.83-4.51); Lymphocyte % 20.1 % (19-41); Mean Corp Hgb Conc 32.5 g/dL (32-36); Mean Corpuscular Hgb 30.3 pg (27.0-32.0); Mean Corpuscular Volume 93.4 fL (81-99); Mean Platelet Vol. 10.5 fl (6.2-12.0); Monocyte# 1.35 X10^3/uL; Monocyte% 15.6 % (0-10); NRBC Flagged by Analyzer 0 % (0-5); Neutrophil # 5.42 X10^3/uL (2.7-7.7); Neutrophil % 62.6 % (47-70); Platelet Count 175 K/mm3 (150-450); RBC Distribution Width CV 14.5 % (11.6-14.6); RBC Distribution Width SD 47.3 fl (35.1-43.9); Red Blood Count 3.66 M/mm3 (4.2-5.4); White Blood Count 8.7 K/mm3 (4.4-11.0)
[2022-07-18 10:06] LABS: Protein, Urine (Random) 26.2 mg/dL (<11.9); Protein:Creat Ratio 122 mg/g CRE (0-200)
[2022-07-18 10:19] LABS: AST(SGOT) 22 U/L (15-37); Alanine Aminotransfer ALT/SGPT 73 U/L (13-56); Albumin, Serum 3.7 g/dL (3.2-5.0); Alkaline Phosphatase 94 U/L (45-117); Anion Gap 2 (5-15); BUN 11 mg/dL (7-18); BUN/Creat Ratio 16.9 RATIO (10-20); Calcium,Total 8.9 mg/dL (8.5-10.1); Chloride 105 mmol/L (98-107); Creatinine, Serum 0.65 mg/dL (0.55-1.02); EST Glomerular Filtration Rate 105 mL/min (>60); Est Glom Filt Rate - Afr Amer 127 mL/min (>60); Globulin 3.5 g/dL (2.2-4.2); Glucose 91 mg/dL (74-106); Potassium 3.9 mmol/L (3.5-5.1); Protein, Total 7.2 g/dL (6.4-8.2); Sodium Level 136 mmol/L (136-145); T4 Free Direct 1.23 ng/dL (0.76-1.46); Thyroid Stim Hormone (TSH) 1.88 uIU/mL (0.358-3.74)
== END | disposition home or self-care (01) ==
LOC: MTLAB 08:23
DX: C53.9 Malignant neoplasm of cervix uteri, unspecified (principal)
CPT/HCPCS: 36415; 80048; 80076; 82570; 84156; 84439; 84443; 85025

== ENCOUNTER → 2022-08-08 | Outpatient (CLI) | payer MEDICAID, SELFPAY ==
[2022-08-08 10:27] LABS: Absolute Lymphocyte Count 1.38 X10^3/uL (0.83-4.51); Absolute Neutrophil Count 4.3 X10^3/uL (2.0-7.7); Basophil# 0.01 X10^3/uL; Basophil% 0.1 % (0-1); Hematocrit 34.9 % (37-47); Lymphocyte # 1.38 X10^3/ul (0.83-4.51); Lymphocyte % 19.6 % (19-41); Mean Corp Hgb Conc 31.5 g/dL (32-36); Mean Corpuscular Hgb 30.8 pg (27.0-32.0); Mean Corpuscular Volume 97.8 fL (81-99); Monocyte# 1.29 X10^3/uL; Monocyte% 18.3 % (0-10); NRBC Flagged by Analyzer 0 % (0-5); Neutrophil # 4.25 X10^3/uL (2.7-7.7); Neutrophil % 60.4 % (47-70); Platelet Count 109 K/mm3 (150-450); RBC Distribution Width CV 17.6 % (11.6-14.6); RBC Distribution Width SD 62.5 fl (35.1-43.9); Red Blood Count 3.57 M/mm3 (4.2-5.4)
[2022-08-08 10:46] LABS: AST(SGOT) 26 U/L (15-37); Alanine Aminotransfer ALT/SGPT 55 U/L (13-56); Albumin, Serum 3.9 g/dL (3.2-5.0); Alkaline Phosphatase 95 U/L (45-117); Anion Gap 5 (5-15); BUN 16 mg/dL (7-18); BUN/Creat Ratio 23.2 RATIO (10-20); Bilirubin, Direct 0.07 mg/dL (0.00-0.30); Calcium,Total 9.4 mg/dL (8.5-10.1); Chloride 104 mmol/L (98-107); Creatinine, Serum 0.69 mg/dL (0.55-1.02); EST Glomerular Filtration Rate 98 mL/min (>60); Est Glom Filt Rate - Afr Amer 118 mL/min (>60); Globulin 3.4 g/dL (2.2-4.2); Glucose 92 mg/dL (74-106); Protein, Total 7.3 g/dL (6.4-8.2); Sodium Level 138 mmol/L (136-145); T4 Free Direct 1.17 ng/dL (0.76-1.46)
[2022-08-08 14:23] LABS: Thyroid Stim Hormone (TSH) 1.94 uIU/mL (0.358-3.74)
== END | disposition home or self-care (01) ==
LOC: MTLAB 08:35
DX: C53.9 Malignant neoplasm of cervix uteri, unspecified (principal)
CPT/HCPCS: 36415; 80048; 80076; 84439; 84443; 85025

== ENCOUNTER → 2022-08-29 | Outpatient (CLI) | payer MEDICAID, SELFPAY ==
[2022-08-29 10:54] LABS: Absolute Lymphocyte Count 1.38 X10^3/uL (0.83-4.51); Absolute Neutrophil Count 3.7 X10^3/uL (2.0-7.7); Basophil# 0.01 X10^3/uL; Basophil% 0.2 % (0-1); Eosinophil# 0.02 X10^3/uL; Eosinophils% 0.3 % (0-5); Hematocrit 34.2 % (37-47); Hemoglobin 10.8 g/dL (12.0-15.0); Lymphocyte # 1.38 X10^3/ul (0.83-4.51); Lymphocyte % 22.2 % (19-41); Mean Corp Hgb Conc 31.6 g/dL (32-36); Mean Corpuscular Hgb 31.5 pg (27.0-32.0); Mean Corpuscular Volume 99.7 fL (81-99); Mean Platelet Vol. 11.8 fl (6.2-12.0); Monocyte# 1.05 X10^3/uL; Monocyte% 16.9 % (0-10); NRBC Flagged by Analyzer 0 % (0-5); Neutrophil # 3.65 X10^3/uL (2.7-7.7); Neutrophil % 58.8 % (47-70); Platelet Count 106 K/mm3 (150-450); RBC Distribution Width CV 17.7 % (11.6-14.6); RBC Distribution Width SD 63.5 fl (35.1-43.9); Red Blood Count 3.43 M/mm3 (4.2-5.4); White Blood Count 6.2 K/mm3 (4.4-11.0)
[2022-08-29 11:01] LABS: Protein, Urine (Random) 19.8 mg/dL (<11.9); Protein:Creat Ratio 162 mg/g CRE (0-200)
[2022-08-29 11:14] LABS: AST(SGOT) 25 U/L (15-37); Alanine Aminotransfer ALT/SGPT 39 U/L (13-56); Albumin, Serum 3.7 g/dL (3.2-5.0); Alkaline Phosphatase 87 U/L (45-117); Anion Gap 0 (5-15); BUN 17 mg/dL (7-18); BUN/Creat Ratio 26.3 RATIO (10-20); Bilirubin, Direct 0.08 mg/dL (0.00-0.30); Chloride 106 mmol/L (98-107); Creatinine, Serum 0.65 mg/dL (0.55-1.02); EST Glomerular Filtration Rate 106 mL/min (>60); Est Glom Filt Rate - Afr Amer 128 mL/min (>60); Globulin 3.2 g/dL (2.2-4.2); Glucose 85 mg/dL (74-106); Protein, Total 6.9 g/dL (6.4-8.2); Sodium Level 135 mmol/L (136-145); T4 Free Direct 1.19 ng/dL (0.76-1.46); Thyroid Stim Hormone (TSH) 2.24 uIU/mL (0.358-3.74)
== END | disposition home or self-care (01) ==
LOC: MTLAB 08:21
DX: C53.9 Malignant neoplasm of cervix uteri, unspecified (principal)
CPT/HCPCS: 36415; 80048; 80076; 82570; 84156; 84439; 84443; 85025

== ENCOUNTER → 2022-09-19 | Outpatient (CLI) | payer MEDICAID, SELFPAY ==
[2022-09-19 10:03] LABS: Absolute Lymphocyte Count 1.45 X10^3/uL (0.83-4.51); Absolute Neutrophil Count 4.3 X10^3/uL (2.0-7.7); Basophil# 0.01 X10^3/uL; Basophil% 0.1 % (0-1); Eosinophil# 0.01 X10^3/uL; Eosinophils% 0.1 % (0-5); Hematocrit 34.7 % (37-47); Lymphocyte # 1.45 X10^3/ul (0.83-4.51); Lymphocyte % 20.9 % (19-41); Mean Corp Hgb Conc 31.7 g/dL (32-36); Mean Corpuscular Hgb 32.4 pg (27.0-32.0); Mean Corpuscular Volume 102.1 fL (81-99); Mean Platelet Vol. 11.4 fl (6.2-12.0); Monocyte# 1.08 X10^3/uL; Monocyte% 15.5 % (0-10); NRBC Flagged by Analyzer 0 % (0-5); Neutrophil # 4.26 X10^3/uL (2.7-7.7); Neutrophil % 61.4 % (47-70); POSITIVE COUNT YES; Platelet Count 78 K/mm3 (150-450); RBC Distribution Width CV 16.8 % (11.6-14.6); RBC Distribution Width SD 62.7 fl (35.1-43.9)
[2022-09-19 10:07] LABS: Differential Indicated SCAN CRITERIA MET
[2022-09-19 10:16] LABS: Protein, Urine (Random) 36.4 mg/dL (<11.9); Protein:Creat Ratio 185 mg/g CRE (0-200)
[2022-09-19 10:22] LABS: AST(SGOT) 25 U/L (15-37); Alanine Aminotransfer ALT/SGPT 39 U/L (13-56); Albumin, Serum 3.9 g/dL (3.2-5.0); Alkaline Phosphatase 93 U/L (45-117); Anion Gap 10 (5-15); BUN 17 mg/dL (7-18); BUN/Creat Ratio 22.8 RATIO (10-20); Calcium,Total 8.9 mg/dL (8.5-10.1); Chloride 106 mmol/L (98-107); Creatinine, Serum 0.75 mg/dL (0.55-1.02); EST Glomerular Filtration Rate 89 mL/min (>60); Est Glom Filt Rate - Afr Amer 108 mL/min (>60); Globulin 3.2 g/dL (2.2-4.2); Glucose 87 mg/dL (74-106); Potassium 4.2 mmol/L (3.5-5.1); Protein, Total 7.1 g/dL (6.4-8.2); Sodium Level 140 mmol/L (136-145); T4 Free Direct 1.08 ng/dL (0.76-1.46); Thyroid Stim Hormone (TSH) 1.82 uIU/mL (0.358-3.74)
[2022-09-19 10:59] LABS: Differential Comment SCANNED
== END | disposition home or self-care (01) ==
DX: C53.9 Malignant neoplasm of cervix uteri, unspecified (principal); Z79.899 Other long term (current) drug therapy; Z91.89 Other specified personal risk factors, not elsewhere classified
CPT/HCPCS: 36415; 80048; 80076; 82570; 84156; 84439; 84443; 85025

== ENCOUNTER → 2022-09-20 | Outpatient (CLI) | payer MEDICAID, SELFPAY ==
[2022-09-20 14:39] LABS: Absolute Lymphocyte Count 1.35 X10^3/uL (0.83-4.51); Absolute Neutrophil Count 3.9 X10^3/uL (2.0-7.7); Hematocrit 36.3 % (37-47); Hemoglobin 11.5 g/dL (12.0-15.0); Lymphocyte # 1.35 X10^3/ul (0.83-4.51); Lymphocyte % 21.4 % (19-41); Mean Corp Hgb Conc 31.7 g/dL (32-36); Mean Corpuscular Hgb 32.6 pg (27.0-32.0); Mean Corpuscular Volume 102.8 fL (81-99); Mean Platelet Vol. 11.3 fl (6.2-12.0); Monocyte# 1.05 X10^3/uL; Monocyte% 16.6 % (0-10); NRBC Flagged by Analyzer 0 % (0-5); Neutrophil # 3.85 X10^3/uL (2.7-7.7); Neutrophil % 60.9 % (47-70); POSITIVE COUNT YES; Platelet Count 82 K/mm3 (150-450); RBC Distribution Width CV 16.4 % (11.6-14.6); RBC Distribution Width SD 61.9 fl (35.1-43.9); Red Blood Count 3.53 M/mm3 (4.2-5.4); White Blood Count 6.3 K/mm3 (4.4-11.0)
== END | disposition home or self-care (01) ==
LOC: MTLAB 13:10
DX: Z51.11 Encounter for antineoplastic chemotherapy (principal); C53.8 Malignant neoplasm of overlapping sites of cervix uteri; Z51.12 Encounter for antineoplastic immunotherapy
CPT/HCPCS: 36415; 85025

== ENCOUNTER → 2022-09-28 | Outpatient (CLI) | payer MEDICAID, SELFPAY ==
[2022-09-28 09:50] LABS: Absolute Lymphocyte Count 1.07 X10^3/uL (0.83-4.51); Absolute Neutrophil Count 1.6 X10^3/uL (2.0-7.7); Basophil# 0.01 X10^3/uL; Basophil% 0.3 % (0-1); Eosinophil# 0.01 X10^3/uL; Eosinophils% 0.3 % (0-5); Hematocrit 33.8 % (37-47); Hemoglobin 10.7 g/dL (12.0-15.0); Lymphocyte # 1.07 X10^3/ul (0.83-4.51); Lymphocyte % 32.6 % (19-41); Mean Corp Hgb Conc 31.7 g/dL (32-36); Mean Corpuscular Hgb 32.3 pg (27.0-32.0); Mean Corpuscular Volume 102.1 fL (81-99); Mean Platelet Vol. 11.5 fl (6.2-12.0); Monocyte# 0.58 X10^3/uL; Monocyte% 17.7 % (0-10); NRBC Flagged by Analyzer 0 % (0-5); Neutrophil % 48.8 % (47-70); POSITIVE COUNT YES; Platelet Count 83 K/mm3 (150-450); RBC Distribution Width CV 15.1 % (11.6-14.6); Red Blood Count 3.31 M/mm3 (4.2-5.4); White Blood Count 3.3 K/mm3 (4.4-11.0)
== END | disposition home or self-care (01) ==
LOC: MTLAB 08:19
DX: Z51.11 Encounter for antineoplastic chemotherapy (principal); C53.8 Malignant neoplasm of overlapping sites of cervix uteri
CPT/HCPCS: 36415; 85025

== ENCOUNTER → 2022-09-30 | Outpatient (CLI) | payer MEDICAID, SELFPAY ==
[2022-09-30 10:22] LABS: Absolute Lymphocyte Count 1.01 X10^3/uL (0.83-4.51); Absolute Neutrophil Count 1.4 X10^3/uL (2.0-7.7); Eosinophil# 0.01 X10^3/uL; Eosinophils% 0.3 % (0-5); Hematocrit 34.2 % (37-47); Hemoglobin 11.1 g/dL (12.0-15.0); Lymphocyte # 1.01 X10^3/ul (0.83-4.51); Mean Corp Hgb Conc 32.5 g/dL (32-36); Mean Corpuscular Hgb 32.6 pg (27.0-32.0); Mean Corpuscular Volume 100.3 fL (81-99); Monocyte# 0.59 X10^3/uL; Monocyte% 19.3 % (0-10); NRBC Flagged by Analyzer 0 % (0-5); Neutrophil # 1.43 X10^3/uL (2.7-7.7); Neutrophil % 46.7 % (47-70); POSITIVE COUNT YES; RBC Distribution Width CV 14.6 % (11.6-14.6); RBC Distribution Width SD 54.4 fl (35.1-43.9); Red Blood Count 3.41 M/mm3 (4.2-5.4); White Blood Count 3.1 K/mm3 (4.4-11.0)
[2022-09-30 10:28] LABS: Platelet Count 95 K/mm3 (150-450)
== END | disposition home or self-care (01) ==
LOC: MTLAB 08:21
DX: Z51.11 Encounter for antineoplastic chemotherapy (principal); C53.8 Malignant neoplasm of overlapping sites of cervix uteri; Z51.12 Encounter for antineoplastic immunotherapy
CPT/HCPCS: 36415; 85025

== ENCOUNTER → 2022-10-03 | Outpatient (CLI) | payer MEDICAID, SELFPAY ==
[2022-10-03 10:39] LABS: Absolute Lymphocyte Count 1.13 X10^3/uL (0.83-4.51); Absolute Neutrophil Count 0.9 X10^3/uL (2.0-7.7); Basophil# 0.01 X10^3/uL; Basophil% 0.4 % (0-1); Eosinophil# 0.02 X10^3/uL; Eosinophils% 0.8 % (0-5); Hematocrit 36.1 % (37-47); Hemoglobin 11.4 g/dL (12.0-15.0); Lymphocyte # 1.13 X10^3/ul (0.83-4.51); Lymphocyte % 43.6 % (19-41); Mean Corp Hgb Conc 31.6 g/dL (32-36); Mean Corpuscular Hgb 32.2 pg (27.0-32.0); Mean Platelet Vol. 11.6 fl (6.2-12.0); Monocyte# 0.55 X10^3/uL; Monocyte% 21.2 % (0-10); NRBC Flagged by Analyzer 0 % (0-5); Neutrophil # 0.88 X10^3/uL (2.7-7.7); POSITIVE DIFFERENTIAL YES; POSITIVE MORPHOLOGY YES; Platelet Count 110 K/mm3 (150-450); RBC Distribution Width CV 14.3 % (11.6-14.6); RBC Distribution Width SD 53.8 fl (35.1-43.9); Red Blood Count 3.54 M/mm3 (4.2-5.4); White Blood Count 2.6 K/mm3 (4.4-11.0)
[2022-10-03 10:45] LABS: Differential Indicated SCAN CRITERIA MET
[2022-10-03 12:05] LABS: Reactive Lymphocyte RARE
== END | disposition home or self-care (01) ==
LOC: MTLAB 08:21
DX: Z51.11 Encounter for antineoplastic chemotherapy (principal); C53.8 Malignant neoplasm of overlapping sites of cervix uteri; Z51.12 Encounter for antineoplastic immunotherapy
CPT/HCPCS: 85025

== ENCOUNTER → 2022-10-05 | Outpatient (CLI) | payer MEDICAID, SELFPAY ==
[2022-10-05 10:35] LABS: Absolute Lymphocyte Count 1.39 X10^3/uL (0.83-4.51); Absolute Neutrophil Count 1.1 X10^3/uL (2.0-7.7); Eosinophil# 0.02 X10^3/uL; Eosinophils% 0.6 % (0-5); Hematocrit 38.3 % (37-47); Hemoglobin 12.3 g/dL (12.0-15.0); Lymphocyte # 1.39 X10^3/ul (0.83-4.51); Lymphocyte % 44.6 % (19-41); Mean Corp Hgb Conc 32.1 g/dL (32-36); Mean Corpuscular Hgb 32.3 pg (27.0-32.0); Mean Corpuscular Volume 100.5 fL (81-99); Monocyte# 0.65 X10^3/uL; Monocyte% 20.8 % (0-10); NRBC Flagged by Analyzer 0 % (0-5); Neutrophil # 1.06 X10^3/uL (2.7-7.7); Platelet Count 110 K/mm3 (150-450); RBC Distribution Width CV 14.1 % (11.6-14.6); RBC Distribution Width SD 52.1 fl (35.1-43.9); Red Blood Count 3.81 M/mm3 (4.2-5.4); White Blood Count 3.1 K/mm3 (4.4-11.0)
== END | disposition home or self-care (01) ==
LOC: MTLAB 08:27
DX: Z51.11 Encounter for antineoplastic chemotherapy (principal); C53.8 Malignant neoplasm of overlapping sites of cervix uteri; Z51.12 Encounter for antineoplastic immunotherapy
CPT/HCPCS: 36415; 85025

== ENCOUNTER → 2022-10-11 | Outpatient (CLI) | payer MEDICAID, SELFPAY ==
[2022-10-11 13:48] LABS: Absolute Lymphocyte Count 2.03 X10^3/uL (0.83-4.51); Absolute Neutrophil Count 7.1 X10^3/uL (2.0-7.7); Basophil# 0.01 X10^3/uL; Basophil% 0.1 % (0-1); Eosinophil# 0.08 X10^3/uL; Eosinophils% 0.8 % (0-5); Hematocrit 40.8 % (37-47); Hemoglobin 12.7 g/dL (12.0-15.0); Lymphocyte # 2.03 X10^3/ul (0.83-4.51); Lymphocyte % 19.7 % (19-41); Mean Corp Hgb Conc 31.1 g/dL (32-36); Mean Corpuscular Hgb 31.9 pg (27.0-32.0); Mean Corpuscular Volume 102.5 fL (81-99); Mean Platelet Vol. 11.4 fl (6.2-12.0); Monocyte# 1.07 X10^3/uL; Monocyte% 10.4 % (0-10); NRBC Flagged by Analyzer 0 % (0-5); Neutrophil # 7.06 X10^3/uL (2.7-7.7); Neutrophil % 68.5 % (47-70); POSITIVE COUNT YES; Platelet Count 94 K/mm3 (150-450); RBC Distribution Width CV 13.9 % (11.6-14.6); RBC Distribution Width SD 52.9 fl (35.1-43.9); Red Blood Count 3.98 M/mm3 (4.2-5.4); White Blood Count 10.3 K/mm3 (4.4-11.0)
[2022-10-11 13:51] LABS: Differential Indicated SCAN CRITERIA MET
[2022-10-11 14:37] LABS: Platelet Estimate MOD DEC (ADEQ)
== END | disposition home or self-care (01) ==
DX: D69.6 Thrombocytopenia, unspecified (principal)
CPT/HCPCS: 36415; 85025

== ENCOUNTER → 2022-10-31 | Outpatient (CLI) | payer MEDICAID, SELFPAY ==
[2022-10-31 09:59] LABS: Absolute Lymphocyte Count 1.72 X10^3/uL (0.83-4.51); Absolute Neutrophil Count 2.9 X10^3/uL (2.0-7.7); Basophil# 0.01 X10^3/uL; Basophil% 0.2 % (0-1); Eosinophil# 0.02 X10^3/uL; Eosinophils% 0.3 % (0-5); Hemoglobin 12.9 g/dL (12.0-15.0); Lymphocyte # 1.72 X10^3/ul (0.83-4.51); Lymphocyte % 29.7 % (19-41); Mean Corp Hgb Conc 31.5 g/dL (32-36); Mean Corpuscular Hgb 31.2 pg (27.0-32.0); Mean Corpuscular Volume 99.3 fL (81-99); Mean Platelet Vol. 11.4 fl (6.2-12.0); NRBC Flagged by Analyzer 0 % (0-5); Neutrophil # 2.91 X10^3/uL (2.7-7.7); Neutrophil % 50.1 % (47-70); Platelet Count 106 K/mm3 (150-450); RBC Distribution Width CV 13.4 % (11.6-14.6); RBC Distribution Width SD 48.9 fl (35.1-43.9); Red Blood Count 4.13 M/mm3 (4.2-5.4); White Blood Count 5.8 K/mm3 (4.4-11.0)
[2022-10-31 10:30] LABS: AST(SGOT) 16 U/L (15-37); Alanine Aminotransfer ALT/SGPT 28 U/L (13-56); Albumin, Serum 3.6 g/dL (3.2-5.0); Alkaline Phosphatase 105 U/L (45-117); Anion Gap 6 (5-15); BUN 16 mg/dL (7-18); BUN/Creat Ratio 21.2 RATIO (10-20); Bilirubin, Direct 0.09 mg/dL (0.00-0.30); Calcium,Total 9.2 mg/dL (8.5-10.1); Chloride 103 mmol/L (98-107); Creatinine, Serum 0.75 mg/dL (0.55-1.02); EST Glomerular Filtration Rate 88 mL/min (>60); Est Glom Filt Rate - Afr Amer 107 mL/min (>60); Globulin 3.9 g/dL (2.2-4.2); Glucose 96 mg/dL (74-106); Potassium 4.1 mmol/L (3.5-5.1); Protein, Total 7.5 g/dL (6.4-8.2); Sodium Level 136 mmol/L (136-145); T4 Free Direct 1.17 ng/dL (0.76-1.46); Thyroid Stim Hormone (TSH) 2.46 uIU/mL (0.358-3.74)
[2022-10-31 10:36] LABS: Protein, Urine (Random) 24.3 mg/dL (<11.9); Protein:Creat Ratio 100 mg/g CRE (0-200)
== END | disposition home or self-care (01) ==
LOC: MTLAB 08:24
DX: Z51.11 Encounter for antineoplastic chemotherapy (principal); C53.8 Malignant neoplasm of overlapping sites of cervix uteri; Z51.12 Encounter for antineoplastic immunotherapy; Z79.899 Other long term (current) drug therapy; Z91.89 Other specified personal risk factors, not elsewhere classified
CPT/HCPCS: 36415; 80048; 80076; 82570; 84156; 84439; 84443; 85025

== ENCOUNTER → 2022-11-21 | Outpatient (CLI) | payer MEDICAID, SELFPAY ==
[2022-11-21 10:09] LABS: Protein, Urine (Random) 20.4 mg/dL (<11.9); Protein:Creat Ratio 159 mg/g CRE (0-200)
[2022-11-21 10:10] LABS: Absolute Lymphocyte Count 1.95 X10^3/uL (0.83-4.51); Absolute Neutrophil Count 6.4 X10^3/uL (2.0-7.7); Basophil# 0.03 X10^3/uL; Basophil% 0.3 % (0-1); Eosinophil# 0.01 X10^3/uL; Eosinophils% 0.1 % (0-5); Hematocrit 37.9 % (37-47); Hemoglobin 12.1 g/dL (12.0-15.0); Lymphocyte # 1.95 X10^3/ul (0.83-4.51); Lymphocyte % 18.9 % (19-41); Mean Corp Hgb Conc 31.9 g/dL (32-36); Mean Corpuscular Hgb 31.3 pg (27.0-32.0); Mean Corpuscular Volume 97.9 fL (81-99); Mean Platelet Vol. 11.7 fl (6.2-12.0); Monocyte# 1.59 X10^3/uL; Monocyte% 15.4 % (0-10); NRBC Flagged by Analyzer 0 % (0-5); Neutrophil # 6.39 X10^3/uL (2.7-7.7); Neutrophil % 61.9 % (47-70); POSITIVE COUNT YES; POSITIVE DIFFERENTIAL YES; Platelet Count 90 K/mm3 (150-450); RBC Distribution Width CV 14.6 % (11.6-14.6); RBC Distribution Width SD 51.2 fl (35.1-43.9); Red Blood Count 3.87 M/mm3 (4.2-5.4); White Blood Count 10.3 K/mm3 (4.4-11.0)
[2022-11-21 10:13] LABS: Differential Indicated SCAN CRITERIA MET
[2022-11-21 10:36] LABS: AST(SGOT) 22 U/L (15-37); Alanine Aminotransfer ALT/SGPT 36 U/L (13-56); Albumin, Serum 3.8 g/dL (3.2-5.0); Alkaline Phosphatase 96 U/L (45-117); Anion Gap 7 (5-15); BUN 19 mg/dL (7-18); BUN/Creat Ratio 27.2 RATIO (10-20); Bilirubin, Direct 0.07 mg/dL (0.00-0.30); Calcium,Total 9.2 mg/dL (8.5-10.1); Chloride 106 mmol/L (98-107); EST Glomerular Filtration Rate 96 mL/min (>60); Est Glom Filt Rate - Afr Amer 117 mL/min (>60); Globulin 3.7 g/dL (2.2-4.2); Glucose 91 mg/dL (74-106); Potassium 3.8 mmol/L (3.5-5.1); Protein, Total 7.5 g/dL (6.4-8.2); Sodium Level 140 mmol/L (136-145); T4 Free Direct 1.05 ng/dL (0.76-1.46)
[2022-11-22 11:32] LABS: Thyroid Stim Hormone (TSH) 2.92 uIU/mL (0.358-3.74)
[2022-11-22 12:35] LABS: Pathologist Review Reviewed
== END | disposition home or self-care (01) ==
LOC: MTLAB 08:28
DX: C53.8 Malignant neoplasm of overlapping sites of cervix uteri (principal); E05.90 Thyrotoxicosis, unspecified without thyrotoxic crisis or storm
CPT/HCPCS: 36415; 80048; 80076; 82570; 84156; 84439; 84443; 85025

== ENCOUNTER → 2022-11-22 | Outpatient (CLI) | payer MEDICAID, SELFPAY ==
[2022-11-22 10:30] LABS: Absolute Lymphocyte Count 1.52 X10^3/uL (0.83-4.51); Absolute Neutrophil Count 5.9 X10^3/uL (2.0-7.7); Basophil# 0.02 X10^3/uL; Basophil% 0.2 % (0-1); Eosinophil# 0.01 X10^3/uL; Eosinophils% 0.1 % (0-5); Hematocrit 37.5 % (37-47); Hemoglobin 11.9 g/dL (12.0-15.0); Lymphocyte # 1.52 X10^3/ul (0.83-4.51); Lymphocyte % 16.6 % (19-41); Mean Corp Hgb Conc 31.7 g/dL (32-36); Mean Corpuscular Hgb 31.2 pg (27.0-32.0); Mean Corpuscular Volume 98.2 fL (81-99); Mean Platelet Vol. 11.9 fl (6.2-12.0); Monocyte# 1.61 X10^3/uL; Monocyte% 17.5 % (0-10); NRBC Flagged by Analyzer 0 % (0-5); Neutrophil % 64.3 % (47-70); POSITIVE COUNT YES; POSITIVE DIFFERENTIAL YES; Platelet Count 91 K/mm3 (150-450); RBC Distribution Width CV 14.6 % (11.6-14.6); RBC Distribution Width SD 51.8 fl (35.1-43.9); Red Blood Count 3.82 M/mm3 (4.2-5.4); White Blood Count 9.2 K/mm3 (4.4-11.0)
[2022-11-22 10:32] LABS: Differential Indicated SCAN CRITERIA MET
[2022-11-22 11:27] LABS: Platelet Estimate MOD DEC (ADEQ)
== END | disposition home or self-care (01) ==
DX: C53.8 Malignant neoplasm of overlapping sites of cervix uteri (principal)
CPT/HCPCS: 36415; 85025

== ENCOUNTER → 2022-11-29 | Outpatient (CLI) | payer MEDICAID, SELFPAY ==
[2022-11-29 14:46] LABS: Absolute Lymphocyte Count 1.33 X10^3/uL (0.83-4.51); Absolute Neutrophil Count 3.3 X10^3/uL (2.0-7.7); Basophil# 0.01 X10^3/uL; Basophil% 0.2 % (0-1); Eosinophil# 0.04 X10^3/uL; Eosinophils% 0.7 % (0-5); Hematocrit 36.2 % (37-47); Hemoglobin 11.5 g/dL (12.0-15.0); Lymphocyte # 1.33 X10^3/ul (0.83-4.51); Lymphocyte % 24.4 % (19-41); Mean Corp Hgb Conc 31.8 g/dL (32-36); Mean Corpuscular Hgb 31.4 pg (27.0-32.0); Mean Corpuscular Volume 98.9 fL (81-99); Mean Platelet Vol. 11.1 fl (6.2-12.0); Monocyte# 0.75 X10^3/uL; Monocyte% 13.7 % (0-10); NRBC Flagged by Analyzer 0 % (0-5); Neutrophil # 3.31 X10^3/uL (2.7-7.7); Neutrophil % 60.6 % (47-70); Platelet Count 133 K/mm3 (150-450); RBC Distribution Width CV 15.1 % (11.6-14.6); RBC Distribution Width SD 55.4 fl (35.1-43.9); Red Blood Count 3.66 M/mm3 (4.2-5.4); White Blood Count 5.5 K/mm3 (4.4-11.0)
== END | disposition home or self-care (01) ==
DX: C34.11 Malignant neoplasm of upper lobe, right bronchus or lung (principal)
CPT/HCPCS: 36415; 85025

== ENCOUNTER → 2022-12-19 | Outpatient (CLI) | payer MEDICAID, SELFPAY ==
[2022-12-19 10:32] LABS: Absolute Lymphocyte Count 1.46 X10^3/uL (0.83-4.51); Absolute Neutrophil Count 4.9 X10^3/uL (2.0-7.7); Basophil# 0.01 X10^3/uL; Basophil% 0.1 % (0-1); Eosinophil# 0.03 X10^3/uL; Eosinophils% 0.4 % (0-5); Hematocrit 37.7 % (37-47); Hemoglobin 12.2 g/dL (12.0-15.0); Lymphocyte # 1.46 X10^3/ul (0.83-4.51); Lymphocyte % 18.7 % (19-41); Mean Corp Hgb Conc 32.4 g/dL (32-36); Mean Corpuscular Hgb 31.2 pg (27.0-32.0); Mean Corpuscular Volume 96.4 fL (81-99); Monocyte# 1.34 X10^3/uL; Monocyte% 17.2 % (0-10); NRBC Flagged by Analyzer 0 % (0-5); Neutrophil # 4.88 X10^3/uL (2.7-7.7); Neutrophil % 62.7 % (47-70); POSITIVE COUNT YES; Platelet Count 69 K/mm3 (150-450); RBC Distribution Width CV 15.4 % (11.6-14.6); RBC Distribution Width SD 54.4 fl (35.1-43.9); Red Blood Count 3.91 M/mm3 (4.2-5.4); White Blood Count 7.8 K/mm3 (4.4-11.0)
[2022-12-19 10:40] LABS: Differential Indicated SCAN CRITERIA MET
[2022-12-19 11:22] LABS: Platelet Estimate MOD DEC (ADEQ)
[2022-12-19 11:34] LABS: AST(SGOT) 19 U/L (15-37); Alanine Aminotransfer ALT/SGPT 30 U/L (13-56); Albumin, Serum 3.8 g/dL (3.2-5.0); Alkaline Phosphatase 95 U/L (45-117); Anion Gap 7 (5-15); BUN 15 mg/dL (7-18); BUN/Creat Ratio 19.8 RATIO (10-20); Bilirubin, Direct 0.07 mg/dL (0.00-0.30); Calcium,Total 9.3 mg/dL (8.5-10.1); Chloride 105 mmol/L (98-107); Creatinine, Serum 0.76 mg/dL (0.55-1.02); EST Glomerular Filtration Rate 88 mL/min (>60); Est Glom Filt Rate - Afr Amer 106 mL/min (>60); Globulin 3.9 g/dL (2.2-4.2); Glucose 117 mg/dL (74-106); Potassium 3.9 mmol/L (3.5-5.1); Protein, Total 7.7 g/dL (6.4-8.2); Sodium Level 138 mmol/L (136-145); T4 Free Direct 1.08 ng/dL (0.76-1.46); Thyroid Stim Hormone (TSH) 2.27 uIU/mL (0.358-3.74)
[2022-12-19 11:41] LABS: Protein, Urine (Random) 21.2 mg/dL (<11.9); Protein:Creat Ratio 126 mg/g CRE (0-200)
== END | disposition home or self-care (01) ==
DX: C53.8 Malignant neoplasm of overlapping sites of cervix uteri (principal)
CPT/HCPCS: 36415; 80048; 80076; 82570; 84156; 84439; 84443; 85025

== ENCOUNTER → 2022-12-26 | Outpatient (CLI) | payer MEDICAID, SELFPAY ==
[2022-12-26 10:08] LABS: Absolute Lymphocyte Count 1.13 X10^3/uL (0.83-4.51); Absolute Neutrophil Count 1.9 X10^3/uL (2.0-7.7); Basophil# 0.01 X10^3/uL; Basophil% 0.3 % (0-1); Eosinophil# 0.06 X10^3/uL; Eosinophils% 1.5 % (0-5); Hematocrit 34.4 % (37-47); Hemoglobin 10.7 g/dL (12.0-15.0); Lymphocyte # 1.13 X10^3/ul (0.83-4.51); Mean Corp Hgb Conc 31.1 g/dL (32-36); Mean Corpuscular Hgb 30.5 pg (27.0-32.0); Mean Platelet Vol. 11.5 fl (6.2-12.0); Monocyte# 0.77 X10^3/uL; Monocyte% 19.7 % (0-10); NRBC Flagged by Analyzer 0 % (0-5); Neutrophil # 1.92 X10^3/uL (2.7-7.7); Neutrophil % 49.2 % (47-70); POSITIVE COUNT YES; Platelet Count 86 K/mm3 (150-450); RBC Distribution Width CV 15.7 % (11.6-14.6); RBC Distribution Width SD 55.8 fl (35.1-43.9); Red Blood Count 3.51 M/mm3 (4.2-5.4); White Blood Count 3.9 K/mm3 (4.4-11.0)
[2022-12-26 10:10] LABS: Protein, Urine (Random) 20.5 mg/dL (<11.9); Protein:Creat Ratio 123 mg/g CRE (0-200)
[2022-12-26 10:27] LABS: AST(SGOT) 17 U/L (15-37); Alanine Aminotransfer ALT/SGPT 26 U/L (13-56); Albumin, Serum 3.8 g/dL (3.2-5.0); Alkaline Phosphatase 69 U/L (45-117); Anion Gap 6 (5-15); BUN 18 mg/dL (7-18); BUN/Creat Ratio 26.4 RATIO (10-20); Bilirubin, Direct 0.11 mg/dL (0.00-0.30); Calcium,Total 9.3 mg/dL (8.5-10.1); Chloride 105 mmol/L (98-107); Creatinine, Serum 0.68 mg/dL (0.55-1.02); EST Glomerular Filtration Rate 99 mL/min (>60); Est Glom Filt Rate - Afr Amer 120 mL/min (>60); Globulin 3.7 g/dL (2.2-4.2); Glucose 92 mg/dL (74-106); Potassium 3.9 mmol/L (3.5-5.1); Protein, Total 7.5 g/dL (6.4-8.2); Sodium Level 138 mmol/L (136-145); T4 Free Direct 1.09 ng/dL (0.76-1.46)
[2022-12-27 04:07] LABS: Cancer Antigen 125 23.4 U/mL (0.0-38.1)
== END | disposition home or self-care (01) ==
LOC: MTLAB 08:29
DX: Z85.41 Personal history of malignant neoplasm of cervix uteri (principal)
CPT/HCPCS: 36415; 80048; 80076; 82570; 84156; 84439; 84443; 85025; 86304

== ENCOUNTER 2023-01-04 11:31 | Emergency (ER) | payer MEDICAID, SELFPAY ==
[2023-01-04 11:32] VITALS: BP 140/96; PULSE 101; RESP 16; TEMP 36.2; O2SAT 100; BMI 21.1
--- NOTE | 2023-01-04 11:54 | CT_ITS ---
INDICATION: fall- CERVICAL CANCER WITH BRAIN METS WITH RADIATION TX AND LUNG METS EXAMINATION: CT BRAIN - CT Head or Brain W/O Contrast Injection TECHNIQUE: Multiple axial images were obtained of the head without intravenous contrast. A radiation dose optimization technique was used for this scan. IV Contrast dosage and agent: None. RADIATION DOSAGE (If Supplied By Facility): CTDIvol = ( 47.06 ) mGy, DLP = ( 872.68 ) mGycm COMPARISON: MRI dated April 11, 2022 FINDINGS: BRAIN PARENCHYMA: There is a round low-attenuation focus within the left basal ganglia. No intra- or extra-axial hemorrhage. No evidence of acute infarct. No intracranial mass or mass effect. There is preservation of the de los santos/white matter interface. There is a low-attenuation focus within the posterior left cerebellar hemisphere. CSF SPACES: Appropriate for age. No hydrocephalus. Basal cisterns are patent. CALVARIUM, SKULL BASE, PARANASAL SINUSES AND MASTOID AIR CELLS: Clear. There are postsurgical changes within the left posterior calvarium. ORBITS: Both globes, extraocular muscles, optic nerves and retrobulbar fat appear unremarkable. ASPECTS Score for Acute Strokes: 10 CT/Brain/Head without Contrast IMPRESSION: Low-attenuation foci within the left basal ganglia and left cerebellum, may be secondary to treated metastases; as a precautionary measure consider MRI with contrast for further evaluation. Electronically Signed: Alka Somers MD at 12:50 EDT ,
--- NOTE | 2023-01-04 11:55 | EDS_ITS ---
HPI HPI - Fall History of Present Illness Chief Complaint: Fall Detail of Chief Complaint: Fall Informant: patient Narrative Narrative: Patient presents to the emergency department after sustaining a fall this cherrie turcios. Patient states that she was reaching down in a cabinet when she lost her balance and fell and landed on her left shoulder and left hip. She does not think she hit her head. There is no loss of consciousness. Patient concerned about intracranial swelling or bleeding because she does have recurrent cervical cancer that was treated recently with chemotherapy that she finished 5 weeks ago. Patient states that she has been having low platelets and has not had blood work in some time. Patient states that she has had imaging of her neck and back although she has been having pain for months in her neck and back and no metastasis has been noted to these areas. PFSH PFSH Medical History (Updated 01/04/23 @ 13:[address] Mandeep Negrete, ) Brain metastases Cancer of upper lobe of right lung Cervical cancer Regional lymph node metastasis present Home Medications dexamethasone 4 mg tablet 4 mg PO BID 14 days #28 tabs 04/18/22 [Rx Last Taken Unknown] Allergy/AdvReac Type Severity Reaction Status Date / Time Sulfa (Sulfonamide Allergy Rash Verified 01/04/23 11:36 Antibiotics) Family History (Updated 04/18/22 @ 10:04 by Mi Arellano) Grandfather Esophageal cancer paternal Grandfather Prostate cancer maternal Rectal cancer maternal Grandmother NHL (non-Hodgkin's lymphoma) maternal Grandmother Cancer blood cancer - unknown diagnosis Uncle Prostate cancer Skin cancer Surgical History H/O LEEP History of lung biopsy Social History (Updated 04/18/22 @ 10:07 by Mi Arellano) current occupational status: employed current occupation: medical or surgical instrument maker Smoking Status: Former smoker Tobacco: How many years used: 15 how long ago did patient quit smokin-10 cigarettes/day; quit in 2010 alcohol intake: current alcohol intake frequency: holidays/special occasions only substance use type: does not use diet: other caffeine: Yes what type of physical activity do you participate in: yoga ROS ROS ED Review of Systems ROS Unobtainable: other Constitutional Constitutional ED: Reports lethargy; Denies chills, fever(s), sweats or weight loss Eyes Eyes: Denies blurry vision, change in vision or diplopia ENT ENT ED: Denies rhinorrhea or sore throat Cardiovascular Cardiovascular: Denies chest pain, orthopnea or racing heartbeat Respiratory/Chest Respiratory/Chest: Denies cough, dyspnea, dyspnea on exertion, orthopnea or sputum Gastrointestinal Gastrointestinal: Denies abdominal pain, diarrhea, nausea or vomiting Genitourinary Genitourinary ED: Denies dysuria, hematuria or urinary frequency Musculoskeletal Musculoskeletal: Reports other Details: Bruising left arm ; Denies arthralgias, back pain, myalgias or neck pain Integumentary Denies abscess, Abrasions or rash Neurologic Neurologic: Reports headache(s); Denies weakness Psychiatric Psychiatric: Denies anxiety, depression or suicidal thoughts Endocrine Endocrinology: Denies polydipsia, polyphagia or polyuria Hematologic/Lymphatic Hematologic/Lymphatic: Denies easy bleeding, easy bruising or lymphadenopathy Allergic/Immunologic Allergic/Immunologic ED: Denies mouth swelling, tongue swelling or urticaria EXAM Physical Exam Const Vital Signs: 01/04/23 11:32 Temperature 97.2 F L Temperature Source Temporal Pulse Rate 101 H Respiratory Rate 16 Blood Pressure 140/96 H Blood Pressure Mean 110 Pulse Ox 100 Oxygen Delivery Method Room Air Positive well nourished and well developed General Appearance ED: well developed and NAD HEENT Reports TM's clear and moist mucous membranes normocephalic and atraumatic; Negative for trauma or tenderness Tympanic Membrane ED: Yes TM's clear Eyes PERRL and EOMs intact bilaterally General Eye ED: Negative for pale conjunctiva or scleral icterus Neck no lymphadenopathy, supple and no JVD Neck Narrative: Mild diffuse C-spine tenderness and no bony step-offs noted or depressions. General: tenderness Chest Wall inspection of chest normal and palpation of chest normal Chest: Negative for tenderness Resp normal respiratory effort and clear to auscultation bilaterally Effort and Inspection: Negative for respiratory distress or pain with movement Auscultation: Negative for rhonchi, wheezes or diminished lung sounds Cardio regular rate, regular rhythm, S1 normal heart sound, S2 normal heart sound and no murmurs Peripheral Pulses: pulses 2+ throughout GI normal to inspection, nondistended, normoactive bowel sounds, soft to palpation, non-tender, non-distended and no masses Back/Spine no CVA tenderness and no thoracic nor lumbar tenderness Extremity Extremity Narrative: Bruising to the left upper arm with no bony tenderness on exam with no obvious deformity. She has normal range of motion at the glenohumeral joint and elbow. Neurovascular intact. General Extremety ED: Negative for edema General Extremity: Negative for edema Neuro oriented x3, CN's II-XII intact bilaterally, no sensory deficits noted and gait normal Sensorium / Orientation: awake, alert, oriented to person, oriented to place and oriented to time Motor Exam: strength 5/5 throughout and strength abnormal Psych mental status grossly normal Skin no rashes or lesions noted and no wounds MDM MDM MDM Narrative Medical decision making narrative: Patient present with a fall at home. She has concern about her blood counts and concern about intracranial hemorrhage as she had low platelets and recently was treated for brain metastasis. She was worried about brain swelling potentially causing loss of balance. IV line established on arrival. CBC with differential white count of 3.5 with hemoglobin 11.7 and platelet count of 98,000. Chemistries unremarkable. CT scan of the brain without contrast was obtained there is no evidence of intracranial hemorrhage. There was evidence of hypodense regions left basal ganglia and left cerebellum which may be secondary to treated metastasis. MRI was recommended however she does have 1 pending in 5 days. I do not feel she needs an emergent MRI today. This point patient will be discharged to home. She is comfortable with plan. Lab Data Attestation: I reviewed the patient's lab results. Labs: Laboratory Results - last 24 hr 01/04/23 12:18 WBC 3.5 L RBC 3.75 L Hgb 11.7 L Hct 37.1 MCV 98.9 MCH 31.2 MCHC 31.5 L RDW Std Deviation 55.2 H RDW Coeff of Patrick 15.4 H Plt Count 98 L MPV 11.4 Immature Gran % (Auto) 0.300 Neut % (Auto) 49.7 Lymph % (Auto) 28.0 Emmet % (Auto) 15.9 H Eos % (Auto) 5.8 H Baso % (Auto) 0.3 Absolute Neuts (auto) 1.7 L Absolute Lymphs (auto) 0.97 Nucleated RBC % 0 Sodium 140 Potassium 4.2 Chloride 107 Carbon Dioxide 27.0 Anion Gap 6 BUN 15 Creatinine 0.74 Estim Creat Clear Calc 82.90 Est GFR (MDRD) Af Amer 109 Est GFR (MDRD) Non-Af 90 BUN/Creatinine Ratio 20.3 H Glucose 99 Calcium 9.8 Radiography Diagnostic Testing: Clinical Impression(s) from Imaging Studies Brain CT 01/04/23 11:54 IMPRESSION: Low-attenuation foci within the left basal ganglia and left cerebellum, may be secondary to treated metastases; as a precautionary measure consider MRI with contrast for further evaluation. Electronically Signed: Alka Somers MD at 12:50 EDT , Cervical Spine X-Ray 01/04/23 12:45 IMPRESSION: Mild C5-C6 degenerative disc disease. Loss of the normal cervical lordosis as may be secondary to positioning and/or muscle spasm. Electronically Signed: Alka Somers MD at 13:02 EDT , Three-view x-rays of cervical spine interpreted by myself as no evidence of fracture or dislocation. Radiology felt there was mild C5-C6 degenerative disc disease and loss of normal cervical lordosis which may be secondary to positioning or muscle spasm. Discharge Plan Triage Chief Complaint: Fall ED Provider: Mandeep Negrete Dx/Rx/DC Orders Clinical Impression: Closed head injury, Contusion of left arm, Neck pain, Fall, Contusion of left hip Instructions: ED Contusion, Upper Extremity, ED Fall with Uncertain Cause, ED Head Injury (Adult), ED Hip Contusion, ED Neck Pain, ED Bladder Infection, Male (Adult) Prescriptions: No Action dexamethasone 4 mg tablet 4 mg PO BID 14 Days Qty: 28 0RF Rx Instructions: Adjust dose as further instructed at the [facility] and do not stop abruptly Primary Care Provider: Care Physician,No Primary Referrals: Care Physician,No Primary [Primary Care Provider] - Activity Restrictions/Additional Instructions: Keep your appointments with your oncologist Disposition Disposition: Home, Self Care
[2023-01-04 12:29] LABS: Absolute Lymphocyte Count 0.97 X10^3/uL (0.83-4.51); Absolute Neutrophil Count 1.7 X10^3/uL (2.0-7.7); Basophil# 0.01 X10^3/uL; Basophil% 0.3 % (0-1); Eosinophils% 5.8 % (0-5); Hematocrit 37.1 % (37-47); Hemoglobin 11.7 g/dL (12.0-15.0); Lymphocyte # 0.97 X10^3/ul (0.83-4.51); Mean Corp Hgb Conc 31.5 g/dL (32-36); Mean Corpuscular Hgb 31.2 pg (27.0-32.0); Mean Corpuscular Volume 98.9 fL (81-99); Mean Platelet Vol. 11.4 fl (6.2-12.0); Monocyte# 0.55 X10^3/uL; Monocyte% 15.9 % (0-10); NRBC Flagged by Analyzer 0 % (0-5); Neutrophil # 1.72 X10^3/uL (2.7-7.7); Neutrophil % 49.7 % (47-70); POSITIVE COUNT YES; Platelet Count 98 K/mm3 (150-450); RBC Distribution Width CV 15.4 % (11.6-14.6); RBC Distribution Width SD 55.2 fl (35.1-43.9); Red Blood Count 3.75 M/mm3 (4.2-5.4); White Blood Count 3.5 K/mm3 (4.4-11.0)
[2023-01-04 12:40] LABS: Anion Gap 6 (5-15); BUN 15 mg/dL (7-18); BUN/Creat Ratio 20.3 RATIO (10-20); Calcium,Total 9.8 mg/dL (8.5-10.1); Chloride 107 mmol/L (98-107); Creatinine, Serum 0.74 mg/dL (0.55-1.02); EST Glomerular Filtration Rate 90 mL/min (>60); Est Glom Filt Rate - Afr Amer 109 mL/min (>60); Glucose 99 mg/dL (74-106); Potassium 4.2 mmol/L (3.5-5.1); Sodium Level 140 mmol/L (136-145)
--- NOTE | 2023-01-04 12:45 | RAD_ITS ---
INDICATION: fall, neck pain EXAMINATION/TECHNIQUE: X-RAY - XR Spine Cervical 2 or 3 Views COMPARISON: No relevant prior comparison study available FINDINGS: VERTEBRAE: Preserved vertebral body height. No fracture. No spondylolisthesis. There is mild loss of the normal cervical lordosis. No significant facet arthropathy. DISCS: There is mild degenerative disc disease of C5-C6. NECK SOFT TISSUES: No prevertebral soft tissue widening. LUNG APICES: Clear. RAD/Cerv Spine 2 or 3 Views IMPRESSION: Mild C5-C6 degenerative disc disease. Loss of the normal cervical lordosis as may be secondary to positioning and/or muscle spasm. Electronically Signed: Alka Somers MD at 13:02 EDT ,
--- NOTE | 2023-01-04 13:05 | CM.ED ---
Social Work Note Referral Source: case find Referral Reason: no PCP SW met with patient and introduced herself and role as [facility] Product Line Manager. Patient lying on hospital bed and agreeable to speak with SW. SW inquired about patient's insurance and current PCP. Patient verified insurance and reports no current PCP. SW provided patient with a list of local PCPs in network with patient's insurance and accepting new patients. Patient was receptive towards list but explained patient's oncologist cares for patient's needs currently. SW remains available if additional needs arise. Araceli Ambrosio PAYMENT MANAGER, MELISA
--- NOTE | 2023-01-04 13:07 | CM.ED ---
Social Work SW reviewed patient's chart, no ADs on file. SW met with patient and inquired about completion of ADs. Patient reports LW is not completed but patient has POA identifying patient's mother, Ayala, as agent. SW encouraged patient to provide a copy to [facility] to be added to patient's chart. Patient voiced understanding. Araceli Ambrosio MSW, MELISA
[2023-01-04 13:30] VITALS: BP 124/86; PULSE 86; RESP 16; O2SAT 97
== END 2023-01-04 13:37 | disposition home or self-care (01) ==
PROVIDERS: Emergency Provider Emergency Medicine; Visit Provider Emergency Medicine
DX: S40.022A Contusion of left upper arm, initial encounter (principal); Z87.891 Personal history of nicotine dependence; S70.02XA Contusion of left hip, initial encounter; S09.8XXA Other specified injuries of head, initial encounter; M54.2 Cervicalgia; W01.10XA Fall on same level from slipping, tripping and stumbling with subsequent striking against unspecified object, initial encounter; Y93.89 Activity, other specified; Z85.41 Personal history of malignant neoplasm of cervix uteri; Z85.118 Personal history of other malignant neoplasm of bronchus and lung; Z85.841 Personal history of malignant neoplasm of brain; Y92.009 Unspecified place in unspecified non-institutional (private) residence as the place of occurrence of the external cause
CPT/HCPCS: 70450; 72040; 80048; 85025; 99282; A4216

== ENCOUNTER → 2023-01-16 | Outpatient (CLI) | payer MEDICAID, SELFPAY ==
[2023-01-16 10:16] LABS: Absolute Lymphocyte Count 1.28 X10^3/uL (0.83-4.51); Basophil# 0.02 X10^3/uL; Basophil% 0.4 % (0-1); Eosinophil# 0.49 X10^3/uL; Eosinophils% 10.9 % (0-5); Hematocrit 39.1 % (37-47); Hemoglobin 12.2 g/dL (12.0-15.0); Lymphocyte # 1.28 X10^3/ul (0.83-4.51); Lymphocyte % 28.5 % (19-41); Mean Corp Hgb Conc 31.2 g/dL (32-36); Mean Corpuscular Hgb 30.7 pg (27.0-32.0); Mean Corpuscular Volume 98.2 fL (81-99); Mean Platelet Vol. 11.5 fl (6.2-12.0); Monocyte# 0.69 X10^3/uL; Monocyte% 15.4 % (0-10); NRBC Flagged by Analyzer 0 % (0-5); Neutrophil # 2.01 X10^3/uL (2.7-7.7); Neutrophil % 44.8 % (47-70); Platelet Count 113 K/mm3 (150-450); RBC Distribution Width CV 14.4 % (11.6-14.6); RBC Distribution Width SD 51.9 fl (35.1-43.9); Red Blood Count 3.98 M/mm3 (4.2-5.4); White Blood Count 4.5 K/mm3 (4.4-11.0)
[2023-01-16 10:24] LABS: Protein, Urine (Random) 16.2 mg/dL (<11.9); Protein:Creat Ratio 140 mg/g CRE (0-200)
[2023-01-16 10:55] LABS: AST(SGOT) 16 U/L (15-37); Alanine Aminotransfer ALT/SGPT 23 U/L (13-56); Albumin, Serum 3.8 g/dL (3.2-5.0); Alkaline Phosphatase 67 U/L (45-117); Anion Gap 7 (5-15); BUN 16 mg/dL (7-18); BUN/Creat Ratio 22.8 RATIO (10-20); Bilirubin, Direct 0.11 mg/dL (0.00-0.30); Calcium,Total 9.3 mg/dL (8.5-10.1); Chloride 106 mmol/L (98-107); EST Glomerular Filtration Rate 96 mL/min (>60); Est Glom Filt Rate - Afr Amer 116 mL/min (>60); Globulin 3.8 g/dL (2.2-4.2); Glucose 87 mg/dL (74-106); Potassium 3.8 mmol/L (3.5-5.1); Protein, Total 7.6 g/dL (6.4-8.2); Sodium Level 140 mmol/L (136-145); T4 Free Direct 1.22 ng/dL (0.76-1.46); Thyroid Stim Hormone (TSH) 2.16 uIU/mL (0.358-3.74)
== END | disposition home or self-care (01) ==
LOC: MTLAB 08:48
DX: C53.8 Malignant neoplasm of overlapping sites of cervix uteri (principal)
CPT/HCPCS: 36415; 80048; 80076; 82570; 84156; 84439; 84443; 85025

== ENCOUNTER → 2023-01-23 | Outpatient (CLI) | payer MEDICAID, SELFPAY ==
[2023-01-23 16:12] LABS: Absolute Lymphocyte Count 1.23 X10^3/uL (0.83-4.51); Absolute Neutrophil Count 2.3 X10^3/uL (2.0-7.7); Basophil# 0.01 X10^3/uL; Basophil% 0.2 % (0-1); Eosinophil# 0.91 X10^3/uL; Eosinophils% 18.3 % (0-5); Hematocrit 38.3 % (37-47); Hemoglobin 11.9 g/dL (12.0-15.0); Lymphocyte # 1.23 X10^3/ul (0.83-4.51); Lymphocyte % 24.7 % (19-41); Mean Corp Hgb Conc 31.1 g/dL (32-36); Mean Corpuscular Hgb 30.7 pg (27.0-32.0); Mean Platelet Vol. 11.9 fl (6.2-12.0); Monocyte# 0.54 X10^3/uL; Monocyte% 10.9 % (0-10); NRBC Flagged by Analyzer 0 % (0-5); Neutrophil # 2.26 X10^3/uL (2.7-7.7); Neutrophil % 45.5 % (47-70); Platelet Count 135 K/mm3 (150-450); RBC Distribution Width CV 13.6 % (11.6-14.6); RBC Distribution Width SD 49.6 fl (35.1-43.9); Red Blood Count 3.87 M/mm3 (4.2-5.4)
[2023-01-23 16:37] LABS: Erythrocyte Sedimentation Rate 23 mm/hr (0-30)
[2023-01-23 17:07] LABS: ALB/GLOB Ratio 0.9 RATIO (0.9-2.4); AST(SGOT) 16 U/L (15-37); Alanine Aminotransfer ALT/SGPT 23 U/L (13-56); Albumin, Serum 3.6 g/dL (3.2-5.0); Alkaline Phosphatase 67 U/L (45-117); Anion Gap 3 (5-15); BUN 16 mg/dL (7-18); BUN/Creat Ratio 24.5 RATIO (10-20); CPK Total, Creatine Kinase 39 U/L (26-192); CRP 7.46 mg/L (0.0-3.0); Calcium,Total 9.4 mg/dL (8.5-10.1); Chloride 106 mmol/L (98-107); Creatinine, Serum 0.65 mg/dL (0.55-1.02); EST Glomerular Filtration Rate 104 mL/min (>60); Est Glom Filt Rate - Afr Amer 126 mL/min (>60); Globulin 3.8 g/dL (2.2-4.2); Glucose 100 mg/dL (74-106); Potassium 3.6 mmol/L (3.5-5.1); Protein, Total 7.4 g/dL (6.4-8.2); Sodium Level 138 mmol/L (136-145); T4 Free Direct 1.18 ng/dL (0.76-1.46); Thyroid Stim Hormone (TSH) 1.25 uIU/mL (0.358-3.74); Uric Acid 3.5 mg/dL (2.6-6.0)
[2023-01-25 14:09] LABS: Adrenocorticotropic Hormone 25.4 pg/mL (7.2-63.3)
== END | disposition home or self-care (01) ==
LOC: MTLAB 12:35
DX: M25.50 Pain in unspecified joint (principal); C53.8 Malignant neoplasm of overlapping sites of cervix uteri
CPT/HCPCS: 36415; 80053; 82024; 82248; 82533; 82550; 84439; 84443; 84550; 85025; 85652; 86140